=== PATIENT | male | born 1940 | race American Indian/Alaskan Native ===

== ENCOUNTER 2016-10-01 16:22 | Inpatient (IN) | payer MEDICARE, OTHER ==
[2016-10-01] MEDS ORDERED: MORPHINE IV ONE (20:25)
[2016-10-01] MEDS ORDERED: ZOFRAN IV ONE (20:25)
[2016-10-01] MEDS ORDERED: NACL 0.9% 1000 ML 500 ML IV ONE (20:25)
--- NOTE | 2016-10-01 20:39 | Emergency Department Report ---
ED Abdominal Pain HPI - General Chief Complaint: Abdominal Pain Stated Complaint: DISTENDED ABD REGION/PAIN Time Seen by Provider: 10/01/16 20:08 Source: patient, EMS Mode of arrival: Ambulatory Limitations: No Limitations - History of Present Illness Initial Comments: 76-year-old male presents to the emergency department via EMS from local [facility] for evaluation of abdominal pain. Patient reports vague abdominal pain that became worse this afternoon. He reports associated diarrhea. He denies fever, nausea, or vomiting. There has been no blood in his stool. Patient points to the middle of his abdomen when asked where the pain is. Pain does not radiate. There are no other complaints. MD Complaint: abdominal pain -: Gradual, days(s) (4) Location: periumbilical Radiation: none Migration to: no migration Severity: mild Improves With: nothing Worsens With: nothing Associated Symptoms: diarrhea - Related Data Home Medications Medication Instructions Recorded Confirmed Last Taken Apixaban [Eliquis] 2.5 mg PO BID 11/19/14 05/25/16 1 Day Ago Carvedilol [Coreg] 12.5 mg PO BID 04/26/15 05/25/16 1 Day Ago Levothyroxine [Synthroid] 0.075 mg PO QAM@0600 04/08/16 05/25/16 1 Day Ago Allopurinol [Zyloprim] 300 mg PO QDAY PRN 05/25/16 05/25/16 1 Day Ago Ascorbic Acid [Vitamin C] 250 mg PO QDAY 05/25/16 05/25/16 1 Day Ago Aspirin 81 mg PO DAILY 05/25/16 05/25/16 1 Day Ago Bumetanide [Bumex] 1 mg PO BID 05/25/16 05/25/16 1 Day Ago Ezetimibe [Zetia] 10 mg PO QHS 05/25/16 05/25/16 1 Day Ago Hydroxyzine HCl [hydrOXYzine] 10 mg PO Q8H PRN 05/25/16 05/25/16 1 Day Ago ISOSORBIDE MONOnitrate [Imdur ER] 30 mg PO DAILY 05/25/16 05/25/16 1 Day Ago Ipratropium/Albuterol Sulfate 1 ampul IH Q6HR 05/25/16 05/25/16 1 Day Ago [Duoneb 0.5 mg-3 mg/3 ml Soln] Zinc Sulfate 220 mg PO DAILY 05/25/16 05/25/16 1 Day Ago predniSONE [Deltasone] 20 mg PO QDAY 05/25/16 05/25/16 1 Day Ago Previous Rx's Medication Instructions Recorded Last Taken Type Latanoprost 0.005% [Xalatan 0.005%] 1 drops OU HS bottle 07/23/15 1 Day Ago Rx Timolol 0.5% [Timoptic] 1 drops OU BID bottle 07/23/15 1 Day Ago Rx Nystatin Cream [Mycostatin Cream] 1 applic TP BID #1 tube 04/26/16 1 Day Ago Rx cycloSPORINE, MODIFIED [Gengraf] 100 mg PO Q12HR #60 capsule 06/15/16 Unknown Rx Lisinopril [Zestril TAB] 2.5 mg PO QDAY #30 tab 08/26/16 Unknown Rx Allergies Allergy/AdvReac Type Severity Reaction Status Date / Time felodipine Allergy Itching Verified 09/14/15 13:13 gemfibrozil Allergy Nausea Verified 09/14/15 13:13 hydrochlorothiazide Allergy Itching Verified 09/14/15 13:13 niacin Allergy Unknown Verified 05/19/15 13:28 [From Niaspan Extended-Release] nifedipine Allergy Itching Verified 09/14/15 13:13 Llcuugp-Mzy-Igu Reductase Allergy Hives Verified 09/14/15 13:13 Inhibitor tolterodine Allergy Itching Verified 09/14/15 13:22 triamterene Allergy Itching Verified 09/14/15 13:22 atorvastatin AdvReac Unknown Verified 05/19/15 13:28 lovastatin AdvReac Unknown Verified 05/19/15 13:28 simvastatin AdvReac Unknown Verified 05/19/15 13:28 ED Review of Systems ROS: Stated complaint: DISTENDED ABD REGION/PAIN Other details as noted in HPI Comment: All other systems reviewed and negative Gastrointestinal: abdominal pain, diarrhea ED Past Medical Hx - Past Medical History Previous Medical History?: Yes Hx Hypertension: Yes Hx CVA: Yes (L sided deficits) Hx Heart Attack/AMI: No Hx Congestive Heart Failure: Yes Hx Diabetes: Yes Hx Deep Vein Thrombosis: Yes Hx Pulmonary Embolism: No Hx GERD: Yes Hx Liver Disease: No Hx Renal Disease: Yes Hx Sickle Cell Disease: No Hx Arthritis: Yes Hx Asthma: No Hx COPD: No Hx Tuberculosis: No Hx Dementia: Yes Hx HIV: No Additional medical history: high cholesterol,gout, Atrial Fib, pacemaker, lifevest - Surgical History Hx Coronary Stent: No Hx Pacemaker: Yes (with subsequent removal) Hx Internal Defibrillator: No Additional Surgical History: Inguinal hernia repair, repair of left femur fx - Family History Family history: no significant - Social History Smoking Status: Never Smoker Substance Use Type: None - Medications Home Medications: Home Medications Medication Instructions Recorded Confirmed Last Taken Type Apixaban [Eliquis] 2.5 mg PO BID 11/19/14 05/25/16 1 Day Ago History Carvedilol [Coreg] 12.5 mg PO BID 04/26/15 05/25/16 1 Day Ago History Latanoprost 0.005% [Xalatan 0.005%] 1 drops OU HS bottle 07/23/15 05/25/16 1 Day Ago Rx Timolol 0.5% [Timoptic] 1 drops OU BID bottle 07/23/15 05/25/16 1 Day Ago Rx Levothyroxine [Synthroid] 0.075 mg PO QAM@0600 04/08/16 05/25/16 1 Day Ago History Nystatin Cream [Mycostatin Cream] 1 applic TP BID #1 tube 04/26/16 05/25/16 1 Day Ago Rx Allopurinol [Zyloprim] 300 mg PO QDAY PRN 05/25/16 05/25/16 1 Day Ago History Ascorbic Acid [Vitamin C] 250 mg PO QDAY 05/25/16 05/25/16 1 Day Ago History Aspirin 81 mg PO DAILY 05/25/16 05/25/16 1 Day Ago History Bumetanide [Bumex] 1 mg PO BID 05/25/16 05/25/16 1 Day Ago History Ezetimibe [Zetia] 10 mg PO QHS 05/25/16 05/25/16 1 Day Ago History Hydroxyzine HCl [hydrOXYzine] 10 mg PO Q8H PRN 05/25/16 05/25/16 1 Day Ago History ISOSORBIDE MONOnitrate [Imdur ER] 30 mg PO DAILY 05/25/16 05/25/16 1 Day Ago History Ipratropium/Albuterol Sulfate 1 ampul IH Q6HR 05/25/16 05/25/16 1 Day Ago History [Duoneb 0.5 mg-3 mg/3 ml Soln] Zinc Sulfate 220 mg PO DAILY 05/25/16 05/25/16 1 Day Ago History predniSONE [Deltasone] 20 mg PO QDAY 05/25/16 05/25/16 1 Day Ago History cycloSPORINE, MODIFIED [Gengraf] 100 mg PO Q12HR #60 capsule 06/15/16 Unknown Rx Lisinopril [Zestril TAB] 2.5 mg PO QDAY #30 tab 08/26/16 Unknown Rx ED Physical Exam - General Limitations: No Limitations General appearance: alert, in no apparent distress - Head Head exam: Present: atraumatic, normocephalic - Eye Eye exam: Present: normal appearance, PERRL, EOMI - ENT ENT exam: Present: normal exam, normal orophraynx, mucous membranes moist - Neck Neck exam: Present: normal inspection, full ROM. Absent: tenderness - Respiratory Respiratory exam: Present: normal lung sounds bilaterally. Absent: respiratory distress - Cardiovascular Cardiovascular Exam: Present: regular rate, normal rhythm, normal heart sounds - GI/Abdominal GI/Abdominal exam: Present: soft, tenderness (mild tenderness to palpation mid abdomen just to the left of midline), normal bowel sounds. Absent: distended, guarding, rebound - Extremities Exam Extremities exam: Present: normal inspection, full ROM. Absent: tenderness - Back Exam Back exam: Present: normal inspection, full ROM. Absent: tenderness - Neurological Exam Neurological exam: Present: alert, oriented X3. Absent: motor sensory deficit - Skin Skin exam: Present: warm, dry, intact ED Course Vital Signs 10/01/16 21:03 Respiratory 20 Rate ED Medical Decision Making - Lab Data Result diagrams: 10/01/16 20:45 10/01/16 20:45 - Radiology Data Radiology results: report reviewed, image reviewed CT abdomen and pelvis revealed bilateral pleural effusions, pericardial effusion , and ascites. There is also soft tissue edema in the abdomen. This appears similar to previous imaging. - Medical Decision Making Lab and imaging results reviewed and discussed with the patient and family. I have spoken with Dr. Simms, nephrology. Patient is to be admitted by the hospitalist. - Differential Diagnosis abdominal pain, enteritis, bowel obstruction Critical care attestation.: If time is entered above; I have spent that time in minutes in the direct care of this critically ill patient, excluding procedure time. ED Disposition Clinical Impression: Acute renal failure Qualifiers: Acute renal failure type: unspecified Qualified Code(s): N17.9 - Acute kidney failure, unspecified Disposition: OP ADMITTED IP TO THIS HOSP Is pt being admited?: Yes Condition: Stable Time of Disposition: 00:05
[2016-10-01 21:32] LABS: Basophils % (Auto) 0.5 % (0.0-1.8); Eosinophils % (Auto) 0.1 % (0.0-4.3); Hemoglobin 9.2 gm/dl (11.8-15.2); Mean Corpuscular HGB Conc 31 % (32-34); Mean Corpuscular Volume 75 fl (84-94); Platelet Count 149 K/mm3 (140-440); White Blood Count 6.5 K/mm3 (4.5-11.0)
[2016-10-01 21:35] LABS: Albumin 3.1 g/dL (3.9-5); BUN/Creatinine Ratio 33.18; Bilirubin,Direct 0.9 mg/dL (0-0.2); Bilirubin,Indirect 0.6 mg/dL; Bilirubin,Total 1.5 mg/dL (0.1-1.2); Calcium 8.2 mg/dL (8.4-10.2); Chloride 101.5 mmol/L (98-107); Potassium 5.8 mmol/L (3.6-5.0); Total Protein 6.2 g/dL (6.3-8.2)
[2016-10-01 21:43] LABS: Mean Corpuscular Hemoglobin 23 pg (28-32); Red Cell Distribution Width 23.3 % (13.2-15.2)
--- NOTE | 2016-10-01 23:06 | Cat Scan Report ---
FINAL REPORT PROCEDURE: CT ABDOMEN PELVIS WO CON TECHNIQUE: Computerized axial tomography of the abdomen and pelvis was performed without intravenous contrast. This study is performed without intravascular contrast material and its sensitivity for abdominal and pelvic pathology, including neoplasms, inflammation, abscess, free fluid, thrombosis, arterial dissection and infarction, is reduced compared with a contrast enhanced study. HISTORY: abdominal pain COMPARISON: Prior CT scan abdomen and pelvis 06/01/2016 FINDINGS: Lower Lung bernardo: There is a moderate to large right pleural effusion although it appears to be smaller than on the prior exam. Adjacent to the right effusion there appears to be atelectasis. Small left pleural effusion is present. There is cardiomegaly and there also appears to be a moderate to large pericardial effusion. Atherosclerotic changes are seen in the coronary arteries. Upper Abdomen: There is increased density dependently in the gallbladder suggesting small gallstones and or layering sludge. There is a large amount of ascites present. The liver showed no focal abnormalities. Adrenal glands, the pancreas and the spleen are unremarkable. Kidneys, Ureters and Urinary bladder: No abnormalities are seen. Retroperitoneum: Atherosclerotic changes are seen in the abdominal aorta. No aneurysm is visualized. Nonspecific subcentimeter lymph nodes are seen in the retroperitoneum. No pathologically enlarged lymph nodes are identified. Bowel: No focal bowel loop abnormalities are seen. There is moderate diverticulosis in the right side of the colon without evidence of diverticulitis. No free intraperitoneal gas is seen. Other: No acute bony abnormalities are seen. There is diffuse body wall edema. IMPRESSION: Large right pleural effusion is present. This is slightly smaller. There is a large amount of ascites probably unchanged. Diffuse body wall edema again visualized. Small left pleural effusion is present. There is a moderate to large pericardial effusion. Colonic diverticulosis without evidence of diverticulitis. Cholelithiasis and/or sludge visualized in the gallbladder.
[2016-10-02 01:27] LABS: Bacteria,Urine 2+ /HPF (Negative); Bilirubin,Urine NEG (Negative); Blood,Urine MOD (Negative); Ketones,Urine NEG (Negative); Leukocyte Esterase,Urine MOD (Negative); Mucus,Urine FEW /HPF; Nitrite,Urine NEG (Negative)
[2016-10-02] MEDS ORDERED: ATARAX PO PRN (01:44)
[2016-10-02] MEDS ORDERED: ZYLOPRIM PO PRN (01:44)
--- NOTE | 2016-10-02 02:07 | History and Physical Report ---
History of Present Illness Date of examination: 10/02/16 Date of admission: 10/02/2016 Chief complaint: abdominal distension and pain History of present illness: 76-year-old male presents to the emergency department via EMS from local skilled nursing for evaluation of abdominal pain. Patient reports vague abdominal pain that became worse this afternoon. He reports associated diarrhea. He denies fever, nausea, or vomiting. Pain is crampy6-8/10 with no radiation. The patient has diarrhea for the last 2weeks but it gets worse for the last 2 days. No aggravating or alleviating factors. patient was discharged recently after he was treated for infected pacemaker. patient is on life vest. REVIEW OF SYSTEMS: GENERAL: no weight change, no fatigue, no fever HEAD: no head ache EYES: no blurry vision, no acute visual loss EARS: no hearing loss, no discharge, no earache NOSE: no stuffiness, no sneezing, no discharge MOUTH, THROAT AND NECK: no bleeding gums, no sore throat, no swollen neck CARDIAC: no palpitations, + dyspnea on exertion, no orthopnea, no PND, + edema, no chest pain RESPIRATORY: + shortness of breath, no wheeze, no cough, no sputum, no hemoptysis, no asthma GI: no decreased appetite, no nausea, no vomiting, no dysphagia, + diarrhea, no constipation, + abdominal pain URINARY: no change in frequency, no urgency, no polyuria, no hematuria, no incontinence MUSCULOSKELETAL: no muscle weakness, no pain, no joint stiffness NEUROLOGIC: no loss of sensation/numbness, no tingling, no tremors, no weakness/ paralysis HEMATOLOGIC: no anemia, no easy bruising SKIN: no rashes ENDOCRINE: no heat/cold intolerance, no polyuria, no polydipsia, no thyroid problems, no diabetes PSYCHIATRIC: no anxiety, no depression, no suicidal ideations Past History Past Medical History: CAD, diabetes, heart failure Past Surgical History: Other (Pacemaker removal) Social history: , full code. denies: smoking, alcohol abuse, prescription drug abuse, IV drug use Family history: other Medications and Allergies Allergies Allergy/AdvReac Type Severity Reaction Status Date / Time felodipine Allergy Itching Verified 09/14/15 13:13 gemfibrozil Allergy Nausea Verified 09/14/15 13:13 hydrochlorothiazide Allergy Itching Verified 09/14/15 13:13 niacin Allergy Unknown Verified 05/19/15 13:28 [From Niaspan Extended-Release] nifedipine Allergy Itching Verified 09/14/15 13:13 Rxlxugt-Vou-Wdo Reductase Allergy Hives Verified 09/14/15 13:13 Inhibitor tolterodine Allergy Itching Verified 09/14/15 13:22 triamterene Allergy Itching Verified 09/14/15 13:22 atorvastatin AdvReac Unknown Verified 05/19/15 13:28 lovastatin AdvReac Unknown Verified 05/19/15 13:28 simvastatin AdvReac Unknown Verified 05/19/15 13:28 Home Medications Medication Instructions Recorded Confirmed Last Taken Type Apixaban [Eliquis] 2.5 mg PO BID 11/19/14 05/25/16 1 Day Ago History Carvedilol [Coreg] 12.5 mg PO BID 04/26/15 05/25/16 1 Day Ago History Latanoprost 0.005% [Xalatan 0.005%] 1 drops OU HS bottle 07/23/15 05/25/16 1 Day Ago Rx Timolol 0.5% [Timoptic] 1 drops OU BID bottle 07/23/15 05/25/16 1 Day Ago Rx Levothyroxine [Synthroid] 0.075 mg PO QAM@0600 04/08/16 05/25/16 1 Day Ago History Nystatin Cream [Mycostatin Cream] 1 applic TP BID #1 tube 04/26/16 05/25/16 1 Day Ago Rx Hydroxyzine HCl [hydrOXYzine] 10 mg PO Q8H PRN 05/25/16 05/25/16 1 Day Ago History Ipratropium/Albuterol Sulfate 1 ampul IH Q6HR 05/25/16 05/25/16 1 Day Ago History [Duoneb 0.5 mg-3 mg/3 ml Soln] Zinc Sulfate 220 mg PO DAILY 05/25/16 05/25/16 1 Day Ago History predniSONE [Deltasone] 20 mg PO QDAY 05/25/16 05/25/16 1 Day Ago History cycloSPORINE, MODIFIED [Gengraf] 100 mg PO Q12HR #60 capsule 06/15/16 Unknown Rx Active Meds: Active Medications Albuterol/Ipratropium (Duoneb 0.5 Mg-3 Mg/3 Ml Soln) 1 ampul IH Q6HR [facility]ID Allopurinol (Zyloprim) 300 mg PO QDAY PRN PRN Reason: Pain Apixaban (Eliquis) 2.5 mg PO BID DAVID Ascorbic Acid (Vitamin C) 250 mg PO QDAY [facility]ID Aspirin (Baby Aspirin) 81 mg PO DAILY [facility] Bumetanide (Bumex) 1 mg PO BID [facility] Carvedilol (Coreg) 12.5 mg PO BID [facility]ID Ezetimibe (Zetia) 10 mg PO QHS [facility]ID Isosorbide Mononitrate (Imdur) 30 mg PO DAILY [facility] Latanoprost (Xalatan 0.005%) 1 drops OU HS [facility]ID Levothyroxine Sodium (Synthroid) 75 mcg PO QAM@0600 [facility]ID Metronidazole (Flagyl) 500 mg PO Q8HR [facility] Miscellaneous Medication (Hydroxyzine Hcl [Hydroxyzine]) 10 mg PO Q8H PRN PRN Reason: Itching Miscellaneous Medication (Lisinopril [Zestril Tab]) 2.5 mg PO QDAY [facility]ID Miscellaneous Medication (Zinc Sulfate [Zinc Sulfate]) 220 mg PO DAILY [facility]ID Nystatin (Mycostatin) 1 applic TP BID [facility]ID Timolol Maleate (Timoptic) 1 drops OU BID [facility] Exam - Physical Exam Narrative exam: Not in cardiopulmonary distress. The patient appeared well nourished and normally developed. Vital signs as documented. Head exam is unremarkable. No scleral icterus . Neck is without jugular venous distension, thyromegaly, or carotid bruits. Lungs decrease air entry on the lower lung zone. Cardiac exam reveals regular rate and Rhythm. First and second heart sounds normal. No murmurs, rubs or gallops. Abdominal exam reveals distended, non tender. Extremities trace pedal and pretibial edema. INFORMATION SERVICES MANAGER: Alert and oriented 3. No focal weakness. - Constitutional Vitals: Temp Pulse Resp BP Pulse Ox 20 10/01/16 21:03 Results - Labs CBC & Chem 7: 10/01/16 20:45 10/01/16 20:45 Labs: Laboratory Last Values WBC 6.5 K/mm3 (4.5-11.0) 10/01/16 20:45 RBC 4.00 M/mm3 (3.65-5.03) 10/01/16 20:45 Hgb 9.2 gm/dl (11.8-15.2) L 10/01/16 20:45 Hct 30.0 % (35.5-45.6) L 10/01/16 20:45 MCV 75 fl (84-94) L 10/01/16 20:45 MCH 23 pg (28-32) L 10/01/16 20:45 MCHC 31 % (32-34) L 10/01/16 20:45 RDW 23.3 % (13.2-15.2) H 10/01/16 20:45 Plt Count 149 K/mm3 (140-440) 10/01/16 20:45 Lymph % (Auto) 11.4 % (13.4-35.0) L 10/01/16 20:45 [place] % (Auto) 4.7 % (0.0-7.3) 10/01/16 20:45 Eos % (Auto) 0.1 % (0.0-4.3) 10/01/16 20:45 Baso % (Auto) 0.5 % (0.0-1.8) 10/01/16 20:45 Lymph # 0.7 K/mm3 (1.2-5.4) L 10/01/16 20:45 [place] # 0.3 K/mm3 (0.0-0.8) 10/01/16 20:45 Eos # 0.0 K/mm3 (0.0-0.4) 10/01/16 20:45 Baso # 0.0 K/mm3 (0.0-0.1) 10/01/16 20:45 Seg Neutrophils % 83.3 % (40.0-70.0) H 10/01/16 20:45 Seg Neutrophils # 5.4 K/mm3 (1.8-7.7) 10/01/16 20:45 Sodium 140 mmol/L (137-145) 10/01/16 20:45 Potassium 5.8 mmol/L (3.6-5.0) H 10/01/16 20:45 Chloride 101.5 mmol/L (98-107) 10/01/16 20:45 Carbon Dioxide 21 mmol/L (22-30) L 10/01/16 20:45 Anion Gap 23 mmol/L 10/01/16 20:45 BUN 73 mg/dL (9-20) H 10/01/16 20:45 Creatinine 2.2 mg/dL (0.8-1.5) H 10/01/16 20:45 Estimated GFR 36 ml/min 10/01/16 20:45 BUN/Creatinine Ratio 33.18 % 10/01/16 20:45 Glucose 100 mg/dL (75-100) 10/01/16 20:45 Calcium 8.2 mg/dL (8.4-10.2) L 10/01/16 20:45 Total Bilirubin 1.5 mg/dL (0.1-1.2) H 10/01/16 20:45 Direct Bilirubin 0.9 mg/dL (0-0.2) H 10/01/16 20:45 Indirect Bilirubin 0.6 mg/dL 10/01/16 20:45 AST 16 units/L (5-40) 10/01/16 20:45 ALT 11 units/L (7-56) 10/01/16 20:45 Alkaline Phosphatase 100 units/L (35-129) 10/01/16 20:45 Total Protein 6.2 g/dL (6.3-8.2) L 10/01/16 20:45 Albumin 3.1 g/dL (3.9-5) L 10/01/16 20:45 Albumin/Globulin Ratio 1.0 % 10/01/16 20:45 Urine Color Holli (Yellow) 10/01/16 01:03 Urine Turbidity Cloudy (Clear) 10/01/16 01:03 Urine pH 5.0 (5.0-7.0) 10/01/16 01:03 Ur Specific [place] 1.014 (1.003-1.030) 10/01/16 01:03 Urine Protein 100 mg/dl mg/dL (Negative) 10/01/16 01:03 Urine Glucose (UA) Neg mg/dL (Negative) 10/01/16 01:03 Urine Ketones Neg mg/dL (Negative) 10/01/16 01:03 Urine Blood Mod (Negative) 10/01/16 01:03 Urine Nitrite Neg (Negative) 10/01/16 01:03 Urine Bilirubin Neg (Negative) 10/01/16 01:03 Urine Urobilinogen 2.0 mg/dL (<2.0) 10/01/16 01:03 Ur Leukocyte Esterase Mod (Negative) 10/01/16 01:03 Urine WBC (Auto) 8.0 /HPF (0.0-6.0) H 10/01/16 01:03 Urine RBC (Auto) 5.0 /HPF (0.0-6.0) 10/01/16 01:03 U Epithel Cells (Auto) 1.0 /HPF (0-13.0) 10/01/16 01:03 Urine Bacteria (Auto) 2+ /HPF (Negative) 10/01/16 01:03 Hyaline Casts 8 /LPF 10/01/16 01:03 Urine Mucus Few /HPF 10/01/16 01:03 - Imaging and Cardiology CT Scan - head: report reviewed Assessment and Plan Assessment and plan: Abdominal pain Diarrhea Acute renal failure Acute on chronic diastolic and systolic heart failure pleural effusion - C.diff result pending - On empiric flagyl - GI consult placed - Nephrology consult placed - resume home medications - cardiology consult placed DVT prophylaxis - on apixaban Disposition - admit to telemtry floor Advance Directives: Yes VTE prophylaxis?: Chemical Plan of care discussed with patient/family: Yes
[2016-10-02] MEDS: FLAGYL PO SCH ×3 (06:08→21:37)
[2016-10-02] MEDS: SYNTHROID PO SCH (06:08)
[2016-10-02] MEDS: DUONEB 0.5 MG-3 MG/3 ML SOLN IH SCH ×3 (09:34→20:32)
--- NOTE | 2016-10-02 09:57 | Gastroenterology Consultation ---
<MILINDGRACIELAFLORIAN GUTIERRES - Last Filed: 10/02/16 10:08> History of Present Illness - Reason for Consult Consult date: 10/02/16 diarrhea Requesting physician: JCARLOS CORDOVA - History of Present Illness Mr. yeh is a 76 y/o male admitted from his NH for abdominal pain and diarrhea x 3-4 days. Information is limited as the patient states " I am not feeling well and want to talk about this later." He does note that he has been on ABX recently but not sure which ones. He states his abdominal pain is "all over", no associated N/V or signs of bleeding. CT c/w gallbladder sludge as well as ascites. 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 H pylori negative. He has a known EF of 15% and is currently on a life vest. He notes he has underwent colonoscopy in the past but is unable to tell me when. PMH significant for CHF, MRSA bacteremia, A fib, previous PEG placement. Past History Past Medical History: CAD, diabetes, heart failure Past Surgical History: Other (Pacemaker removal, PEG) Social history: , full code. denies: smoking, alcohol abuse, prescription drug abuse, IV drug use Family history: other Medications and Allergies Allergies Allergy/AdvReac Type Severity Reaction Status Date / Time felodipine Allergy Itching Verified 09/14/15 13:13 gemfibrozil Allergy Nausea Verified 09/14/15 13:13 hydrochlorothiazide Allergy Itching Verified 09/14/15 13:13 niacin Allergy Unknown Verified 05/19/15 13:28 [From Niaspan Extended-Release] nifedipine Allergy Itching Verified 09/14/15 13:13 Bxtyosq-Yge-Tyy Reductase Allergy Hives Verified 09/14/15 13:13 Inhibitor tolterodine Allergy Itching Verified 09/14/15 13:22 triamterene Allergy Itching Verified 09/14/15 13:22 atorvastatin AdvReac Unknown Verified 05/19/15 13:28 lovastatin AdvReac Unknown Verified 05/19/15 13:28 simvastatin AdvReac Unknown Verified 05/19/15 13:28 Home Medications Medication Instructions Recorded Confirmed Last Taken Type Apixaban [Eliquis] 2.5 mg PO BID 11/19/14 10/02/16 10/01/16 History Carvedilol [Coreg] 12.5 mg PO BID 04/26/15 10/02/16 10/01/16 History Latanoprost 0.005% [Xalatan 0.005%] 1 drops OU HS bottle 07/23/15 10/02/16 Rx Timolol 0.5% [Timoptic] 1 drops OU BID bottle 07/23/15 10/02/16 10/01/16 Rx Levothyroxine [Synthroid] 0.075 mg PO QAM@0600 04/08/16 10/02/16 10/01/16 History Nystatin Cream [Mycostatin Cream] 1 applic TP BID #1 tube 04/26/16 10/02/16 Rx Hydroxyzine HCl [hydrOXYzine] 10 mg PO Q8H PRN 05/25/16 10/02/16 10/01/16 History Ipratropium/Albuterol Sulfate 1 ampul IH Q6HR 05/25/16 10/02/16 10/01/16 History [Duoneb 0.5 mg-3 mg/3 ml Soln] Zinc Sulfate 220 mg PO DAILY 05/25/16 10/02/16 10/01/16 History predniSONE [Deltasone] 20 mg PO QDAY 05/25/16 10/02/16 10/01/16 History cycloSPORINE, MODIFIED [Gengraf] 100 mg PO Q12HR #60 capsule 06/15/16 10/02/16 10/01/16 Rx Active Meds: Active Medications Albuterol/Ipratropium (Duoneb 0.5 Mg-3 Mg/3 Ml Soln) 1 ampul IH Q6HRT [facility] Last Admin: 10/02/16 09:34 Dose: 1 ampul Allopurinol (Zyloprim) 300 mg PO QDAY PRN PRN Reason: Pain Apixaban (Eliquis) 2.5 mg PO BID [facility] Ascorbic Acid (Vitamin C) 250 mg PO QDAY [facility] Aspirin (Baby Aspirin) 81 mg PO DAILY [facility] Bumetanide (Bumex) 1 mg PO BID [facility] Carvedilol (Coreg) 12.5 mg PO BID [facility] Ezetimibe (Zetia) 10 mg PO QHS [facility] Hydroxyzine HCl (Atarax) 10 mg PO Q8H PRN PRN Reason: Itching Isosorbide Mononitrate (Imdur) 30 mg PO DAILY [facility] Latanoprost (Xalatan 0.005%) 1 drops OU HS [facility] Levothyroxine Sodium (Synthroid) 75 mcg PO QAM@0600 [facility] Last Admin: 10/02/16 06:08 Dose: 75 mcg Lisinopril (Zestril) 2.5 mg PO QDAY [facility] Metronidazole (Flagyl) 500 mg PO Q8HR [facility] Last Admin: 10/02/16 06:08 Dose: 500 mg Nystatin (Mycostatin) 1 applic TP BID [facility] Timolol Maleate (Timoptic) 1 drops OU BID [facility] Zinc Sulfate (Zinc Sulfate) 220 mg PO DAILY [facility] Review of Systems - Review of Systems All systems: negative Constitutional: weakness Gastrointestinal: abdominal pain, diarrhea Exam - Constitutional Vital Signs: Temp Pulse Resp BP Pulse Ox 96.9 F L 88 24 130/94 94 10/02/16 08:28 10/02/16 09:34 10/02/16 09:34 10/02/16 08:28 10/02/16 09:40 General appearance: no acute distress, other (chornically ill appearing) - EENT ENT: hearing intact - Neck Neck: supple - Respiratory Respiratory: bilateral: diminished - Cardiovascular Rhythm: regular Heart Sounds: Present: systolic murmur Extremity abnormal: edema - Gastrointestinal General gastrointestinal: Present: soft, tender (TTP throughout), distended, normal bowel sounds - Integumentary Integumentary: Present: warm, dry - Neurologic Neurological: alert and oriented x3 - Psychiatric Psychiatric: appropriate mood/affect - Labs CBC & Chem 7: 10/01/16 20:45 10/01/16 20:45 Assessment and Plan 1. Diarrhea - C diff pending, patient states his diarrhea is continuous for the last 2-3 days. Unclear to his last colonoscopy - Check fecal WBC/culture - No colitis per CT - Could be 2/2 ABX therapy, currently on Flagyl empirically - CT with Gallbladder sludge, AST/ALT WNL, ALK PHOS WNL, mild elevation to TB 2. Ascites -patient has had paracentesis in the past. This is likely 2/[address] shows pleural effusion and pericardial effusion. Will consider paracentesis if needed. Previously SHANICE negative, Hepatitis negative, no liver disease per CT. 3. Abdominal Pain -Doubt gallbladder, no acute inflammation/colitis per CT -May be due to ascites noted on CT -Consider Paracentesis -WBC WNL, afebrile. <NEELAM OROZCO - Last Filed: 10/02/16 17:53> Medications and Allergies Active Meds: Active Medications Albuterol/Ipratropium (Duoneb 0.5 Mg-3 Mg/3 Ml Soln) 1 ampul IH Q6HRT [facility] Last Admin: 10/02/16 14:39 Dose: 1 ampul Allopurinol (Zyloprim) 300 mg PO QDAY PRN PRN Reason: Pain Apixaban (Eliquis) 2.5 mg PO BID [facility] Last Admin: 10/02/16 10:57 Dose: Not Given Ascorbic Acid (Vitamin C) 250 mg PO QDAY [facility] Last Admin: 10/02/16 10:57 Dose: Not Given Aspirin (Baby Aspirin) 81 mg PO DAILY [facility] Last Admin: 10/02/16 10:56 Dose: Not Given Bumetanide (Bumex) 1 mg PO BID [facility] Last Admin: 10/02/16 10:56 Dose: Not Given Carvedilol (Coreg) 12.5 mg PO BID [facility] Last Admin: 10/02/16 10:56 Dose: Not Given Ezetimibe (Zetia) 10 mg PO QHS [facility] Hydroxyzine HCl (Atarax) 10 mg PO Q8H PRN PRN Reason: Itching Isosorbide Mononitrate (Imdur) 30 mg PO DAILY [facility] Last Admin: 10/02/16 10:57 Dose: Not Given Latanoprost (Xalatan 0.005%) 1 drops OU HS [facility] Levothyroxine Sodium (Synthroid) 75 mcg PO QAM@0600 [facility] Last Admin: 10/02/16 06:08 Dose: 75 mcg Lisinopril (Zestril) 2.5 mg PO QDAY [facility] Last Admin: 10/02/16 10:58 Dose: Not Given Metronidazole (Flagyl) 500 mg PO Q8HR [facility] Last Admin: 10/02/16 15:11 Dose: Not Given Nystatin (Mycostatin) 1 applic TP BID [facility] Timolol Maleate (Timoptic) 1 drops OU BID [facility] Zinc Sulfate (Zinc Sulfate) 220 mg PO DAILY [facility] Last Admin: 10/02/16 10:58 Dose: Not Given Exam - Constitutional Vital Signs: Temp Pulse Resp BP Pulse Ox 96.0 F L 74 20 139/89 99 10/02/16 16:25 10/02/16 16:25 10/02/16 16:25 10/02/16 16:25 10/02/16 16:25 - Labs CBC & Chem 7: 10/01/16 20:45 10/01/16 20:45 Assessment and Plan GI Attending: I have performed a face to face evaluation on Mr. Yeh and agree with the above note of Radha Gibbs NP. He is hospitalized with abdominal discomfort and diarrhea. Had recent MRSA infection to remove infected PPM. Would consider C. diff as leading differential. Already on Flagyl but stool studies sent.
--- NOTE | 2016-10-02 09:59 | Progress Note ---
Subjective Interval history: thank you for the consultation Patient was evaluated today Assessment and plan acute renal failure in a patient who has known history of underlying chronic kidney disease baseline creatinine is around 1 Patient stated that she was seen in the office approximately 2-3 weeks agoWill need to check clinic records History of underlying membranous nephropathy will follow up on the proteinuria Increasing abdominal distention abdominal pain and diarrhea needs to see gastroenterology Hyperkalemia mild at this time needs to be treated medically and follow-up Patient has history of poor compliance Admitted with abdominal distention and abdominal pain needs follow-up We'll continue to follow neck recommendation from renal standpoint to check on renal function tonight Objective - Vital Signs Vital signs: Vital Signs - 12hr 10/02/16 10/02/16 10/02/16 02:00 03:00 03:02 Temperature Pulse Rate 86 86 86 Pulse Rate [ Anterior Bilateral Throughout] Pulse Rate [ Left] Respiratory 15 21 18 Rate Respiratory Rate [Anterior Bilateral Throughout] Blood Pressure 123/72 136/93 136/93 Blood Pressure [Left Arm] O2 Sat by Pulse 99 100 90 Oximetry 10/02/16 10/02/16 10/02/16 03:32 04:00 05:16 Temperature Pulse Rate 87 86 84 Pulse Rate [ Anterior Bilateral Throughout] Pulse Rate [ Left] Respiratory 22 18 Rate Respiratory Rate [Anterior Bilateral Throughout] Blood Pressure 123/96 137/104 Blood Pressure [Left Arm] O2 Sat by Pulse 94 85 Oximetry 10/02/16 10/02/16 10/02/16 06:00 08:28 08:39 Temperature 97.7 F 96.9 F L Pulse Rate 76 Pulse Rate [ Anterior Bilateral Throughout] Pulse Rate [ 86 76 Left] Respiratory 18 20 Rate Respiratory Rate [Anterior Bilateral Throughout] Blood Pressure Blood Pressure 123/90 130/94 [Left Arm] O2 Sat by Pulse 99 Oximetry 10/02/16 10/02/16 09:34 09:40 Temperature Pulse Rate Pulse Rate [ 88 Anterior Bilateral Throughout] Pulse Rate [ Left] Respiratory Rate Respiratory 24 Rate [Anterior Bilateral Throughout] Blood Pressure Blood Pressure [Left Arm] O2 Sat by Pulse 94 Oximetry - Lab 10/01/16 20:45 10/03/16 13:52 Most recent lab results Calcium 8.2 mg/dL (8.4-10.2) L 10/01/16 20:45
[2016-10-02] MEDS ORDERED: ZESTRIL PO SCH (10:00)
[2016-10-02] MEDS: BUMEX PO SCH ×2 (10:56→21:37)
[2016-10-02] MEDS: BABY ASPIRIN PO SCH (10:56)
[2016-10-02] MEDS: COREG PO SCH ×2 (10:56→21:37)
[2016-10-02] MEDS: VITAMIN C PO SCH (10:57)
[2016-10-02] MEDS: IMDUR PO SCH (10:57)
[2016-10-02] MEDS: ELIQUIS PO SCH ×2 (10:57→21:37)
[2016-10-02] MEDS: ZINC SULFATE PO SCH (10:58)
--- NOTE | 2016-10-02 11:31 | Admit Criteria Form ---
Admission Criteria Documentation: RENAL FAILURE, ACUTE Clinical Indications for Admission to Inpatient Care ( Place 'X' for any and all applicable criteria): Admission is indicated for ALL (if I & II) or III of the following [A](2)(3)(4)( 5)(6)(7): [ ]I. Acute renal failure as indicated by ANY ONE of the following: [ ]a) A 3-fold rise in serum creatinine from baseline [ ]b) Serum creatinine greater than 4 mg/dL (354 micromoles/L) with an acute rise greater than 0.5 mg/dL (44.2 micromoles/L) [ ]c) Reduction of more than 75% in estimated glomerular filtration rate from baseline [ ]d) Estimated glomerular filtration rate less than 35 mL/min/1.73m2 (0.59mL/sec/1.73m2)in a child up to 18 years of age [ ]e) Anuria indicated by ALL of the following: [ ]i) Adequate volume status [ ]ii) Cessation of urine output indicated by ANY ONE of the following: [ ]1) Urine output less than 0.3 mL/kg/hr for 24 hours [ ]2) Anuria (urine output less than 0.1 mL/kg/ hr) for 12 hours [ X] II. Renal failure cannot be managed in an outpatient setting or observational care setting as indicating by ANY ONE of the following: [ ]a) Altered mental status that is severe or persistent [ ]b) Volume overload or Respiratory distress (eg, clinically significant pulmonary edema) that is severe or persistent [ ]c) Cardiac arrhythmias of immediate concern [ ]d) Hemodynamic instability [ ]e) Clinically significant electrolyte abnormality that requires inpatient care (eg, hyperkalemia with severe ECG findings)[B] [ ]f) Clinically significant metabolic abnormality (eg, acidosis) that is severe or persistent [X ]g) Acute treatment of renal failure (eg, renal replacement therapy ) not feasible or appropriate in observational care setting [ ]h) Clinical situation too unstable or uncertain (eg, inadequate urine output, ongoing decline in renal function, etiology unclear) [ ]i) Necessary support and caregiver ability to comply with outpatient treatment cannot be arranged in observation care timeframe (eg, within 24 hours) [ X]j) Other significant finding or clinical condition judged not to be within scope of observation care [ X]III.General contraindications and/or Inappropriate clinical situations for Observational Care in patients with Acute Renal Failure, when ANY ONE of the following is required: [X]a) Prediction of prolongation of LOS based on ANY ONE of the following may be considered as a contraindication for observational care 2, 3, 4, 5, 6, 7, 8 , 9, 10, 11 [X ]i) Age > 65 yrs. [ ]ii) Patient arriving by ambulance [ ]iii) Patient with high acuity [ ]iv) Patient requiring vital sign monitoring [ ]v) Patient on IV medication [ ]b) Systolic blood pressures 180mmHg 3,12 [ ]c) Patient with altered mental status including delirium and other alteration of consciousness, (3) [ ]d) Patient whose discharge disposition will be to a nursing home home or rehabilitation home should not be managed in Emergency Department Observation Unit. CMS rule requires 3 days hospital stay before such placement.3,13 [ ]e) Patient with failure to thrive due to broad array of etiologies 3, 16,17 [ ]f) Inability to ambulate 3,14 Extended stay beyond goal length of stay may be needed for(13) [ ]a) Continuing uremic complications [ ]b) Care for comorbidities [ ]c) acute renal failure [ ]d) Need for dialysis The original [employer] content created by [employer] has been revised. The portions of the content which have been revised are identified through the use of italic text or in bold, and [facility] has neither reviewed nor approved the modified material. All other unmodified content is copyright [facility]. Please see references footnoted in the original [employer] edition 2016
--- NOTE | 2016-10-02 16:47 | Consultation ---
Addendum entered and electronically signed by DAIMON SUE MD 10/02/16 20:07 : Conservative cardiac management. Original Note: History of Present Illness Consult date: 10/02/16 Consult reason: other (Hx of infected pacemaker pocket) History of present illness: Patient is a 76yr old male with a history of Nonobstructive coronary disease, Nonischemic cardiomyopathy EF 15%, Peripheral vascular disease, prior CVA, chronic Renal failure, left atrial appendage by BHAVANA 05/2016, paroxysmal Afib and is on eliquis for anticoagulation. 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 Currently wearing a lifevest. He presented to this hospital with complaints abdominal pain associated with diarrhea. No ECG available for review. Telemetry strips shows a sinus rhythm with premature atrial contractions. Patient denies chest pain. Admits to shortness of breath. Remains afebrile. Cardiac consultation requested. Past History Past Medical History: CAD, diabetes, heart failure Past Surgical History: Other (Pacemaker removal, PEG) Social history: , full code. denies: smoking, alcohol abuse, prescription drug abuse, IV drug use Family history: other Medications and Allergies Allergies Allergy/AdvReac Type Severity Reaction Status Date / Time felodipine Allergy Itching Verified 09/14/15 13:13 gemfibrozil Allergy Nausea Verified 09/14/15 13:13 hydrochlorothiazide Allergy Itching Verified 09/14/15 13:13 niacin Allergy Unknown Verified 05/19/15 13:28 [From Niaspan Extended-Release] nifedipine Allergy Itching Verified 09/14/15 13:13 Tiongks-Boh-Acu Reductase Allergy Hives Verified 09/14/15 13:13 Inhibitor tolterodine Allergy Itching Verified 09/14/15 13:22 triamterene Allergy Itching Verified 09/14/15 13:22 atorvastatin AdvReac Unknown Verified 05/19/15 13:28 lovastatin AdvReac Unknown Verified 05/19/15 13:28 simvastatin AdvReac Unknown Verified 05/19/15 13:28 Home Medications Medication Instructions Recorded Confirmed Last Taken Type Apixaban [Eliquis] 2.5 mg PO BID 11/19/14 10/02/16 10/01/16 History Carvedilol [Coreg] 12.5 mg PO BID 04/26/15 10/02/16 10/01/16 History Latanoprost 0.005% [Xalatan 0.005%] 1 drops OU HS bottle 07/23/15 10/02/16 Rx Timolol 0.5% [Timoptic] 1 drops OU BID bottle 07/23/15 10/02/16 10/01/16 Rx Levothyroxine [Synthroid] 0.075 mg PO QAM@0600 04/08/16 10/02/16 10/01/16 History Nystatin Cream [Mycostatin Cream] 1 applic TP BID #1 tube 04/26/16 10/02/16 Rx Hydroxyzine HCl [hydrOXYzine] 10 mg PO Q8H PRN 05/25/16 10/02/16 10/01/16 History Ipratropium/Albuterol Sulfate 1 ampul IH Q6HR 05/25/16 10/02/16 10/01/16 History [Duoneb 0.5 mg-3 mg/3 ml Soln] Zinc Sulfate 220 mg PO DAILY 05/25/16 10/02/16 10/01/16 History predniSONE [Deltasone] 20 mg PO QDAY 05/25/16 10/02/16 10/01/16 History cycloSPORINE, MODIFIED [Gengraf] 100 mg PO Q12HR #60 capsule 06/15/16 10/02/16 10/01/16 Rx Active Meds: Active Medications Albuterol/Ipratropium (Duoneb 0.5 Mg-3 Mg/3 Ml Soln) 1 ampul IH Q6HRT [facility] Last Admin: 10/02/16 14:39 Dose: 1 ampul Allopurinol (Zyloprim) 300 mg PO QDAY PRN PRN Reason: Pain Apixaban (Eliquis) 2.5 mg PO BID [facility] Last Admin: 10/02/16 10:57 Dose: Not Given Ascorbic Acid (Vitamin C) 250 mg PO QDAY [facility] Last Admin: 10/02/16 10:57 Dose: Not Given Aspirin (Baby Aspirin) 81 mg PO DAILY [facility] Last Admin: 10/02/16 10:56 Dose: Not Given Bumetanide (Bumex) 1 mg PO BID [facility] Last Admin: 10/02/16 10:56 Dose: Not Given Carvedilol (Coreg) 12.5 mg PO BID [facility] Last Admin: 10/02/16 10:56 Dose: Not Given Ezetimibe (Zetia) 10 mg PO QHS [facility] Hydroxyzine HCl (Atarax) 10 mg PO Q8H PRN PRN Reason: Itching Isosorbide Mononitrate (Imdur) 30 mg PO DAILY [facility] Last Admin: 10/02/16 10:57 Dose: Not Given Latanoprost (Xalatan 0.005%) 1 drops OU HS [facility] Levothyroxine Sodium (Synthroid) 75 mcg PO QAM@0600 [facility] Last Admin: 10/02/16 06:08 Dose: 75 mcg Lisinopril (Zestril) 2.5 mg PO QDAY [facility] Last Admin: 10/02/16 10:58 Dose: Not Given Metronidazole (Flagyl) 500 mg PO Q8HR [facility] Last Admin: 10/02/16 15:11 Dose: Not Given Nystatin (Mycostatin) 1 applic TP BID [facility] Timolol Maleate (Timoptic) 1 drops OU BID [facility] Zinc Sulfate (Zinc Sulfate) 220 mg PO DAILY [facility] Last Admin: 10/02/16 10:58 Dose: Not Given Physical Examination Vital Signs BP 147/91 10/01/16 19:53 General appearance: no acute distress HEENT: Positive: PERRL Neck: Positive: trachea midline Cardiac: Positive: Reg Rate and Rhythm Lungs: Positive: Decreased Breath Sounds Abdomen: Positive: Distended Results 10/01/16 20:45 10/01/16 20:45 Assessment and Plan Abdominal pain Ascities Non ischemic Cardiomyopathy EF less than 20% wearing lifevest Paroxysmal Atrial Fibrillation on low dose eliquis Hx of MRSA bacteremia s/p extraction of his pacemaker and leads s/t infected pocket Left atrial appendage by BHAVANA 05/2016 Non obstructive CAD by [facility] 2013 Prior CVA Chronic renal failure PVD
--- NOTE | 2016-10-02 19:03 | Progress Note ---
Assessment and Plan Assessment and plan: Patient is a pleasant 76-year-old male presents to the emergency department via EMS from local long-term for evaluation of abdominal pain with associated 3- 4 days of diarrhea. Has been on antiboitics recently He denies fever, nausea, or vomiting. Pain is crampy6-8/10 with no radiation. The patient has diarrhea for the last 2weeks but it gets worse for the last 2 days. No aggravating or alleviating factors. patient was discharged recently after he was treated for infected pacemaker. patient is on life vest. CT c/w gallbladder sludge as well as ascites. 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 H pylori negative. He has a known EF of 15% and is currently on a life vest. He notes he has underwent colonoscopy but not sure when. PMH significant for CHF, MRSA bacteremia, A fib, previous PEG placement. 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 GENERAL: The patient appeared well nourished and normally developed. Vital signs as documented. HEAD: No signs of head trauma. EYES: Pupils are equal. Extraocular motions intact. EARS: Hearing grossly intact. MOUTH: Oropharynx is normal. NECK: No adenopathy, no JVD. CHEST: Chest with clear breath sounds bilaterally. No wheezes, rales, or rhonchi. CARDIAC: Regular rate and rhythm. S1 and S2, without murmurs, gallops, or rubs. VASCULAR: No Edema. Peripheral pulses normal and equal in all extremities. ABDOMEN: Soft, without detectable tenderness. No sign of distention. No rebound or guarding, and no masses palpated. Bowel Sounds normal. MUSCULOSKELETAL: Good range of motion of all major joints. Extremities without clubbing, cyanosis or edema. NEUROLOGIC EXAM: Alert and oriented x 3. No focal sensory or strength deficits. Speech normal. Follows commands. PSYCHIATRIC: Mood normal. SKIN: No rash or lesions. - Constitutional Vitals: Temp Pulse Resp BP Pulse Ox 96.0 F L 74 20 139/89 99 10/02/16 16:25 10/02/16 16:25 10/02/16 16:25 10/02/16 16:25 10/02/16 16:25 General appearance: Present: no acute distress Results - Labs CBC & Chem 7: 10/01/16 20:45 10/01/16 20:45 Labs: Laboratory Last Values WBC 6.5 K/mm3 (4.5-11.0) 10/01/16 20:45 RBC 4.00 M/mm3 (3.65-5.03) 10/01/16 20:45 Hgb 9.2 gm/dl (11.8-15.2) L 10/01/16 20:45 Hct 30.0 % (35.5-45.6) L 10/01/16 20:45 MCV 75 fl (84-94) L 10/01/16 20:45 MCH 23 pg (28-32) L 10/01/16 20:45 MCHC 31 % (32-34) L 10/01/16 20:45 RDW 23.3 % (13.2-15.2) H 10/01/16 20:45 Plt Count 149 K/mm3 (140-440) 10/01/16 20:45 Lymph % (Auto) 11.4 % (13.4-35.0) L 10/01/16 20:45 [place] % (Auto) 4.7 % (0.0-7.3) 10/01/16 20:45 Eos % (Auto) 0.1 % (0.0-4.3) 10/01/16 20:45 Baso % (Auto) 0.5 % (0.0-1.8) 10/01/16 20:45 Lymph # 0.7 K/mm3 (1.2-5.4) L 10/01/16 20:45 [place] # 0.3 K/mm3 (0.0-0.8) 10/01/16 20:45 Eos # 0.0 K/mm3 (0.0-0.4) 10/01/16 20:45 Baso # 0.0 K/mm3 (0.0-0.1) 10/01/16 20:45 Seg Neutrophils % 83.3 % (40.0-70.0) H 10/01/16 20:45 Seg Neutrophils # 5.4 K/mm3 (1.8-7.7) 10/01/16 20:45 Sodium 140 mmol/L (137-145) 10/01/16 20:45 Potassium 5.8 mmol/L (3.6-5.0) H 10/01/16 20:45 Chloride 101.5 mmol/L (98-107) 10/01/16 20:45 Carbon Dioxide 21 mmol/L (22-30) L 10/01/16 20:45 Anion Gap 23 mmol/L 10/01/16 20:45 BUN 73 mg/dL (9-20) H 10/01/16 20:45 Creatinine 2.2 mg/dL (0.8-1.5) H 10/01/16 20:45 Estimated GFR 36 ml/min 10/01/16 20:45 BUN/Creatinine Ratio 33.18 % 10/01/16 20:45 Glucose 100 mg/dL (75-100) 10/01/16 20:45 Calcium 8.2 mg/dL (8.4-10.2) L 10/01/16 20:45 Total Bilirubin 1.5 mg/dL (0.1-1.2) H 10/01/16 20:45 Direct Bilirubin 0.9 mg/dL (0-0.2) H 10/01/16 20:45 Indirect Bilirubin 0.6 mg/dL 10/01/16 20:45 AST 16 units/L (5-40) 10/01/16 20:45 ALT 11 units/L (7-56) 10/01/16 20:45 Alkaline Phosphatase 100 units/L (35-129) 10/01/16 20:45 Total Protein 6.2 g/dL (6.3-8.2) L 10/01/16 20:45 Albumin 3.1 g/dL (3.9-5) L 10/01/16 20:45 Albumin/Globulin Ratio 1.0 % 10/01/16 20:45 Urine Color Holli (Yellow) 10/01/16 01:03 Urine Turbidity Cloudy (Clear) 10/01/16 01:03 Urine pH 5.0 (5.0-7.0) 10/01/16 01:03 Ur Specific [place] 1.014 (1.003-1.030) 10/01/16 01:03 Urine Protein 100 mg/dl mg/dL (Negative) 10/01/16 01:03 Urine Glucose (UA) Neg mg/dL (Negative) 10/01/16 01:03 Urine Ketones Neg mg/dL (Negative) 10/01/16 01:03 Urine Blood Mod (Negative) 10/01/16 01:03 Urine Nitrite Neg (Negative) 10/01/16 01:03 Urine Bilirubin Neg (Negative) 10/01/16 01:03 Urine Urobilinogen 2.0 mg/dL (<2.0) 10/01/16 01:03 Ur Leukocyte Esterase Mod (Negative) 10/01/16 01:03 Urine WBC (Auto) 8.0 /HPF (0.0-6.0) H 10/01/16 01:03 Urine RBC (Auto) 5.0 /HPF (0.0-6.0) 10/01/16 01:03 U Epithel Cells (Auto) 1.0 /HPF (0-13.0) 10/01/16 01:03 Urine Bacteria (Auto) 2+ /HPF (Negative) 10/01/16 01:03 Hyaline Casts 8 /LPF 10/01/16 01:03 Urine Mucus Few /HPF 10/01/16 01:03
[2016-10-02] MEDS: ZETIA PO SCH (21:37)
[2016-10-03] MEDS: DUONEB 0.5 MG-3 MG/3 ML SOLN IH SCH ×4 (02:09→21:10)
[2016-10-03] MEDS: XALATAN 0.005% OU SCH ×2 (05:20→22:00)
[2016-10-03] MEDS: SYNTHROID PO SCH (05:20)
[2016-10-03] MEDS: FLAGYL PO SCH (05:20)
[2016-10-03] MEDS: TIMOPTIC OU SCH ×3 (05:20→22:00)
[2016-10-03] MEDS: MYCOSTATIN TP SCH ×2 (05:21→22:00)
[2016-10-03 07:19] LABS: Calcium 7.8 mg/dL (8.4-10.2); Chloride 101.3 mmol/L (98-107); Potassium 5.9 mmol/L (3.6-5.0)
--- NOTE | 2016-10-03 09:58 | Progress Note ---
Assessment and Plan acute renal failure in a patient who has multiple risk factors for underlying chronic kidney disease there has been deterioration in renal function with worsening hyperkalemia that needs to be treated medically at this point and if it remains refractory patient may require renal replacement therapy. Hyperkalemia [id number] at this time we'll treat medically follow-up on the basic metabolic profile if it remains elevated consider hemodialysis temporarily Anasarca-like picture currently being worked up Overall renal prognosis appears to be guarded, will do a bladder scan today to make sure he does not have any features of obstructive uropathy We'll continue to follow and make recommendation from renal standpoint Subjective Interval history: Patient was seen today for follow-up he is laying in his bed appears not to be in any distress Potassium still noted to be elevated, patient denies any acute complaints Interdisciplinary notes were also reviewed Vitals labs intake output medications were reviewed Objective - Vital Signs Vital signs: Vital Signs - 12hr 10/03/16 10/03/16 10/03/16 02:05 02:16 03:00 Temperature Pulse Rate [ 78 71 Anterior Bilateral Throughout] Pulse Rate [ 77 Left] Respiratory 20 Rate Respiratory 20 18 Rate [Anterior Bilateral Throughout] Blood Pressure 114/87 [Left Arm] O2 Sat by Pulse 100 Oximetry 10/03/16 10/03/16 10/03/16 04:00 08:19 08:28 Temperature 97.8 F 97.4 F L Pulse Rate [ 80 Anterior Bilateral Throughout] Pulse Rate [ 78 66 Left] Respiratory 20 20 Rate Respiratory 18 Rate [Anterior Bilateral Throughout] Blood Pressure 118/82 127/86 [Left Arm] O2 Sat by Pulse 100 100 96 Oximetry 10/03/16 08:38 Temperature Pulse Rate [ 84 Anterior Bilateral Throughout] Pulse Rate [ Left] Respiratory Rate Respiratory 18 Rate [Anterior Bilateral Throughout] Blood Pressure [Left Arm] O2 Sat by Pulse Oximetry - General Appearance General appearance: appears stated age (elderly-appearing gentleman) EENT: mucous membranes moist Neck: no JVD Respiratory: Present: Rales (few bilateral basilar crackles) Cardiology: regular, S1S2 Gastrointestinal: normal (soft nontender) Integumentary: no rash (dry skin one plus edema) - Lab 10/01/16 20:45 10/03/16 13:52 Most recent lab results Calcium 7.8 mg/dL (8.4-10.2) L 10/03/16 05:36
[2016-10-03] MEDS ORDERED: ZYLOPRIM PO PRN ×2 (10:01→12:22)
[2016-10-03] MEDS: VITAMIN C PO SCH (10:41)
[2016-10-03] MEDS: BUMEX PO SCH ×2 (10:41→22:00)
[2016-10-03] MEDS: ZINC SULFATE PO SCH (10:41)
[2016-10-03] MEDS: ELIQUIS PO SCH ×2 (10:42→22:00)
[2016-10-03] MEDS: BABY ASPIRIN PO SCH (10:42)
[2016-10-03] MEDS: COREG PO SCH (10:43)
[2016-10-03] MEDS ORDERED: D50W (25GM) IV PRN (11:00)
[2016-10-03] MEDS ORDERED: KAYEXALATE PO ONE (11:00)
[2016-10-03] MEDS ORDERED: CALCIUM CHLORIDE IV ONE (11:00)
--- NOTE | 2016-10-03 13:26 | Progress Note ---
Addendum entered and electronically signed by DAMION SUE MD 10/03/16 14:02 : Conservative cardiac management. Bradycardia has been reported on the patient's telemetry, we will discontinue carvedilol, and check a thyroid profile. Original Note: Assessment and Plan Abdominal pain Ascities Non ischemic Cardiomyopathy EF less than 20% wearing lifevest Paroxysmal Atrial Fibrillation on low dose eliquis Hx of MRSA bacteremia s/p extraction of his pacemaker and leads s/t infected pocket Left atrial appendage by BHAVANA 05/2016 Non obstructive CAD by [facility] 2013 Prior CVA Chronic renal failure PVD Continue medical therapy for nonischemic cardiomyopathy and paroxysmal atrial fibrillation. Subjective Date of service: 10/03/16 Interval history: Patient resting in bed comfortably. Objective Vital Signs Temp Pulse Pulse Pulse Resp Resp BP 10/03/16 12:24 97.6 F 82 20 10/03/16 10:43 83 127/86 10/03/16 08:38 84 18 10/03/16 08:28 80 18 10/03/16 08:19 97.4 F L 66 20 10/03/16 04:00 97.8 F 78 20 10/03/16 03:00 77 20 10/03/16 02:16 71 18 10/03/16 02:05 78 20 10/02/16 20:45 75 18 10/02/16 20:32 87 18 10/02/16 20:18 98.3 F 93 H 18 10/02/16 20:00 83 10/02/16 16:25 96.0 F L 74 20 10/02/16 14:53 74 18 10/02/16 14:40 74 18 BP Pulse Ox 10/03/16 12:24 137/88 100 10/03/16 10:43 10/03/16 08:38 10/03/16 08:28 96 10/03/16 08:19 127/86 100 10/03/16 04:00 118/82 100 10/03/16 03:00 114/87 100 10/03/16 02:16 10/03/16 02:05 10/02/16 20:45 10/02/16 20:32 98 10/02/16 20:18 132/88 94 10/02/16 20:00 10/02/16 16:25 139/89 99 10/02/16 14:53 10/02/16 14:40 - Physical Examination General: No Apparent Distress HEENT: Positive: PERRL Neck: Positive: trachea midline Cardiac: Positive: Reg Rate and Rhythm Lungs: Positive: Decreased Breath Sounds Abdomen: Positive: Distended - Labs and Meds Comprehensive Metabolic Panel 10/03/16 Range/Units 05:36 Sodium 141 (137-145) mmol/L Potassium 5.9 H (3.6-5.0) mmol/L Chloride 101.3 (98-107) mmol/L Carbon Dioxide 19 L (22-30) mmol/L BUN 93 H (9-20) mg/dL Creatinine 3.0 H (0.8-1.5) mg/dL Glucose 57 L (75-100) mg/dL Calcium 7.8 L (8.4-10.2) mg/dL
[2016-10-03 14:15] LABS: BUN/Creatinine Ratio 32.06; Calcium 7.7 mg/dL (8.4-10.2); Chloride 100.6 mmol/L (98-107)
[2016-10-03] MEDS ORDERED: KAYEXALATE ONE (16:19)
[2016-10-03] MEDS: IMDUR PO SCH (16:42)
--- NOTE | 2016-10-03 16:53 | Gastroenterology Progress Note ---
Assessment and Plan 1) Abd discomfort/diarrhea/fecal incontinence: ?etiology, related to abx? -C. diff neg, so will d/c Flagyl -No diarrhea today, but will anticipate some due to administration of Kayexalate -Given cardiac history, I feel that colonoscopy will be higher risk and of lower diagnostic utility at this time -Would opt to observe and re-assess Subjective Date of service: 10/03/16 Principal diagnosis: Diarrhea Interval history: Pt seen/examined today. No reports of diarrhea or incontinence today. C. diff is negative. Pt still mentions some lower abdominal cramping, but not severe pain. Received Kayexalate for hyperkalemia. C/O neck cramp at this time. Objective - Constitutional Vitals: Temp Pulse Resp BP Pulse Ox 97.3 F L 67 20 122/72 99 10/03/16 15:38 10/03/16 15:38 10/03/16 15:38 10/03/16 15:38 10/03/16 15:38 General appearance: no acute distress - Neck Neck: supple - Respiratory Respiratory: bilateral: CTA - Cardiovascular Rhythm: regular Heart Sounds: Present: S1 & S2 - Extremities Extremities: No edema - Gastrointestinal General gastrointestinal: Present: soft, distended, normal bowel sounds - Neurologic Neurological: alert and oriented x3 - Psychiatric Psychiatric: appropriate mood/affect - Labs CBC & Chem 7: 10/01/16 20:45 10/03/16 13:52 Labs: Laboratory Results - last 24 hr 10/03/16 10/03/16 05:36 13:52 Sodium 141 139 Potassium 5.9 H 6.0 H Chloride 101.3 100.6 Carbon Dioxide 19 L 20 L Anion Gap 27 24 BUN 93 H 93 H Creatinine 3.0 H 2.9 H Estimated GFR 25 26 BUN/Creatinine Ratio 31.00 32.06 Glucose 57 L 60 L Calcium 7.8 L 7.7 L
[2016-10-03] MEDS ORDERED: NACL 0.9% 1000 ML 100 ML IV PRN ×2 (17:12→20:36)
--- NOTE | 2016-10-03 17:15 | Event Note ---
d/w and pt. Worsening renal function Needs to get HD , explained at length to and pt, d/w nurse to place justice K is rising D/w Dr Garcia needs vasacth for HD urgently Will follow
--- NOTE | 2016-10-03 20:15 | XRay Report ---
FINAL REPORT EXAM: XR CHEST 1V AP HISTORY: vas cath TECHNIQUE: AP portable view of the chest PRIORS: CXR 08/26/2016 FINDINGS: Lines, tubes, and devices: Numerous pieces of metallic equipment are present over the chest, somewhat obscuring visualization of the underlying structures. There is a right subclavian PICC line terminating in the distal superior vena cava. A new right jugular double-lumen catheter terminates in the distal superior vena cava. Lungs and pleura: Trachea is normal in position. Mild perihilar vascular prominence is seen. There is no evidence for infiltrate, pleural effusion, or pneumothorax. Cardiomediastinal silhouette: Cardiac silhouette is larger than seen previously. This may be due to underlying pericardial effusion in should be correlated clinically. Cardiac echo may be needed. Other: Bony structures are intact. IMPRESSION: Enlargement of the cardiac silhouette. Given the time interval, possibility of pericardial effusion should be considered. Perihilar vascular congestion identified.
[2016-10-03] MEDS ORDERED: HEPARIN IV PRN (20:36)
[2016-10-03] MEDS: ZETIA PO SCH (22:00)
[2016-10-04] MEDS: DUONEB 0.5 MG-3 MG/3 ML SOLN IH SCH ×4 (01:51→19:51)
--- NOTE | 2016-10-04 05:28 | Progress Note ---
Assessment and Plan - Patient Problems (1) Acute on chronic systolic (congestive) heart failure Current Visit: No Status: Acute Plan to address problem: CArdiology consulted: Continue current care, [facility] protocol: Sodium restriction, daily weight, UOP q shift, diuresis, (2) Acute renal failure Current Visit: Yes Status: Acute Qualifiers: Acute renal failure type: unspecified Qualified Code(s): N17.9 - Acute kidney failure, unspecified Plan to address problem: Nephrology consulted: worsening renal function, dialysis as per nephrology, Pt transferred to ICU. Pending Vas cath placement, and dialysis. The high probability of a clinically significant, sudden or life threatening deterioration of the [cardiac, renal, pulmonary] system(s) required my full and direct attention, intervention and personal management. The aggregate critical care time was [55] minutes. This time is in addition to time spent performing reported procedures but includes the following: [x] Data Review and interpretation [x] Patient assessment and monitoring of vital signs [x] Documentation [x] Medication orders and management (3) Chronic atrial fibrillation Current Visit: No Status: Acute Plan to address problem: Rate controlled, continue current therpay. (4) Debility Current Visit: No Status: Acute Plan to address problem: Bed alarm, fall precautions. (5) Hypertension Current Visit: No Status: Chronic (6) Nephrotic syndrome Current Visit: No Status: Chronic Plan to address problem: Nephrology consulted, dialysis as per renal team, monitor uop q shift, (7) Encephalopathy Current Visit: Yes Status: Acute Plan to address problem: Metabolic in nature. treat renal failure, and heart failure. (8) DVT prophylaxis Current Visit: No Status: Acute History Interval history: Pt lying in bed, Pt stupurous, with deterioration since admission. Pending transfer to ICU. Hospitalist Physical - Constitutional Vitals: Temp Pulse Resp BP Pulse Ox 97.8 F 77 14 132/78 98 10/04/16 04:00 10/04/16 02:07 10/04/16 02:07 10/04/16 02:00 10/04/16 02:00 General appearance: Present: no acute distress - Neck Neck: Present: supple - Respiratory Respiratory: bilateral: diminished - Cardiovascular Rhythm: irregularly irregular - Extremities Extremity abnormal: edema - Abdominal General gastrointestinal: soft, non-distended, no hepatomegaly, no splenomegaly - Integumentary Integumentary: Present: clear, dry, decreased turgor - Psychiatric Psychiatric: no intact judgment & insight, no memory intact - Neurologic Neurologic: moves all extremities, no gait normal Results - Labs CBC & Chem 7: 10/01/16 20:45 10/03/16 13:52 Labs: Laboratory Last Values WBC 6.5 K/mm3 (4.5-11.0) 10/01/16 20:45 RBC 4.00 M/mm3 (3.65-5.03) 10/01/16 20:45 Hgb 9.2 gm/dl (11.8-15.2) L 10/01/16 20:45 Hct 30.0 % (35.5-45.6) L 10/01/16 20:45 MCV 75 fl (84-94) L 10/01/16 20:45 MCH 23 pg (28-32) L 10/01/16 20:45 MCHC 31 % (32-34) L 10/01/16 20:45 RDW 23.3 % (13.2-15.2) H 10/01/16 20:45 Plt Count 149 K/mm3 (140-440) 10/01/16 20:45 Lymph % (Auto) 11.4 % (13.4-35.0) L 10/01/16 20:45 [place] % (Auto) 4.7 % (0.0-7.3) 10/01/16 20:45 Eos % (Auto) 0.1 % (0.0-4.3) 10/01/16 20:45 Baso % (Auto) 0.5 % (0.0-1.8) 10/01/16 20:45 Lymph # 0.7 K/mm3 (1.2-5.4) L 10/01/16 20:45 [place] # 0.3 K/mm3 (0.0-0.8) 10/01/16 20:45 Eos # 0.0 K/mm3 (0.0-0.4) 10/01/16 20:45 Baso # 0.0 K/mm3 (0.0-0.1) 10/01/16 20:45 Seg Neutrophils % 83.3 % (40.0-70.0) H 10/01/16 20:45 Seg Neutrophils # 5.4 K/mm3 (1.8-7.7) 10/01/16 20:45 Sodium 139 mmol/L (137-145) 10/03/16 13:52 Potassium 6.0 mmol/L (3.6-5.0) H 10/03/16 13:52 Chloride 100.6 mmol/L (98-107) 10/03/16 13:52 Carbon Dioxide 20 mmol/L (22-30) L 10/03/16 13:52 Anion Gap 24 mmol/L 10/03/16 13:52 BUN 93 mg/dL (9-20) H 10/03/16 13:52 Creatinine 2.9 mg/dL (0.8-1.5) H 10/03/16 13:52 Estimated GFR 26 ml/min 10/03/16 13:52 BUN/Creatinine Ratio 32.06 % 10/03/16 13:52 Glucose 60 mg/dL (75-100) L 10/03/16 13:52 POC Glucose 129 (70-105) H 10/03/16 21:45 Calcium 7.7 mg/dL (8.4-10.2) L 10/03/16 13:52 Total Bilirubin 1.5 mg/dL (0.1-1.2) H 10/01/16 20:45 Direct Bilirubin 0.9 mg/dL (0-0.2) H 10/01/16 20:45 Indirect Bilirubin 0.6 mg/dL 10/01/16 20:45 AST 16 units/L (5-40) 10/01/16 20:45 ALT 11 units/L (7-56) 10/01/16 20:45 Alkaline Phosphatase 100 units/L (35-129) 10/01/16 20:45 Total Protein 6.2 g/dL (6.3-8.2) L 10/01/16 20:45 Albumin 3.1 g/dL (3.9-5) L 10/01/16 20:45 Albumin/Globulin Ratio 1.0 % 10/01/16 20:45 TSH 2.570 mlU/mL (0.270-4.200) 10/03/16 17:00 Urine Color [place] (Yellow) 10/01/16 01:03 Urine Turbidity Cloudy (Clear) 10/01/16 01:03 Urine pH 5.0 (5.0-7.0) 10/01/16 01:03 Ur Specific [place] 1.014 (1.003-1.030) 10/01/16 01:03 Urine Protein 100 mg/dl mg/dL (Negative) 10/01/16 01:03 Urine Glucose (UA) Neg mg/dL (Negative) 10/01/16 01:03 Urine Ketones Neg mg/dL (Negative) 10/01/16 01:03 Urine Blood Mod (Negative) 10/01/16 01:03 Urine Nitrite Neg (Negative) 10/01/16 01:03 Urine Bilirubin Neg (Negative) 10/01/16 01:03 Urine Urobilinogen 2.0 mg/dL (<2.0) 10/01/16 01:03 Ur Leukocyte Esterase Mod (Negative) 10/01/16 01:03 Urine WBC (Auto) 8.0 /HPF (0.0-6.0) H 10/01/16 01:03 Urine RBC (Auto) 5.0 /HPF (0.0-6.0) 10/01/16 01:03 U Epithel Cells (Auto) 1.0 /HPF (0-13.0) 10/01/16 01:03 Urine Bacteria (Auto) 2+ /HPF (Negative) 10/01/16 01:03 Hyaline Casts 8 /LPF 10/01/16 01:03 Urine Mucus Few /HPF 10/01/16 01:03 Hepatitis A IgM Ab -1 (NonReactive) 10/03/16 20:29 Hep Bs Antigen Non-reactive (Negative) 10/03/16 20:29 Hep B Core IgM Ab Non-reactive (NonReactive) 10/03/16 20:29 Hepatitis C Antibody Non-reactive (NonReactive) 10/03/16 20:29
--- NOTE | 2016-10-04 07:28 | Gastroenterology Progress Note ---
Assessment and Plan 1) Abd discomfort/diarrhea/fecal incontinence: ?etiology, related to abx? -C. diff neg -Given cardiac history, I feel that colonoscopy will be higher risk and of lower diagnostic utility at this time -Would opt to observe for now I will stop following daily, but please do not hesitate to re-call with any questions. Thank you! Subjective Date of service: 10/04/16 Principal diagnosis: Diarrhea Interval history: Pt seen/examined this AM. Moved to ICU overnight for emergent HD due to worsening hyperkalemia. Abd discomfort the same, no diarrhea overnight. No fevers, chills. Objective - Constitutional Vitals: Temp Pulse Resp BP Pulse Ox 97.8 F 74 14 116/68 100 10/04/16 04:00 10/04/16 06:00 10/04/16 06:00 10/04/16 06:00 10/04/16 05:40 General appearance: no acute distress - Neck Neck: supple, other (right IJ) - Respiratory Respiratory: bilateral: CTA - Cardiovascular Rhythm: regular Heart Sounds: Present: S1 & S2 - Extremities Extremities: No edema - Gastrointestinal General gastrointestinal: Present: soft, non-tender, non-distended, normal bowel sounds - Neurologic Neurological: alert and oriented x3 - Labs CBC & Chem 7: 10/01/16 20:45 10/03/16 13:52 Labs: Laboratory Results - last 24 hr 10/03/16 10/03/16 10/03/16 13:52 17:00 20:29 Sodium 139 Potassium 6.0 H Chloride 100.6 Carbon Dioxide 20 L Anion Gap 24 BUN 93 H Creatinine 2.9 H Estimated GFR 26 BUN/Creatinine Ratio 32.06 Glucose 60 L POC Glucose Calcium 7.7 L TSH 2.570 Hepatitis A IgM Ab -1 Hep Bs Antigen Non-reactive Hep B Core IgM Ab Non-reactive Hepatitis C Antibody Non-reactive 10/03/16 21:45 Sodium Potassium Chloride Carbon Dioxide Anion Gap BUN Creatinine Estimated GFR BUN/Creatinine Ratio Glucose POC Glucose 129 H Calcium TSH Hepatitis A IgM Ab Hep Bs Antigen Hep B Core IgM Ab Hepatitis C Antibody
--- NOTE | 2016-10-04 08:06 | Operative Report ---
Operative Report Operative Report: Date of procedure: 04/02/2017 Pre-operative diagnosis: Acute renal failure Post-operative diagnosis: Name Procedure name(s): Right internal jugular temporary dialysis catheter placement Surgeon: Rui Garcia MD, RPVI Db2 Dba: None Anesthesia:: With IV sedation Findings 1. Patent right internal jugular vein. 2. Tip of the catheters in the right atrium. 3. Catheter aspirates and flushed easily. EBL: Minimal Disposition: ICU Procedure Patient was brought to the ICU. Right neck was prepped and draped in usual sterile fashion. It was anesthetized with 1% lidocaine. Under ultrasound guidance the micropuncture needle was inserted into the right internal jugular vein. The micropuncture wire was advanced into the superior vena cava. The introducer was placed the wire was exchanged to a J-tip wire. The wire was directed down into the IVC. The tract was dilated using a dilator. The dialysis catheter was placed over the wire. The wire was removed. The catheter aspirated and flushed easily. Each port was hep-locked with heparin. The catheter was anchored to the skin using 2-0 silk stitch. Dressings were applied. Patient tolerated procedure well.
[2016-10-04 09:06] LABS: BUN/Creatinine Ratio 24.73; Calcium 7.2 mg/dL (8.4-10.2); Chloride 99.3 mmol/L (98-107); Potassium 4.3 mmol/L (3.6-5.0)
[2016-10-04] MEDS: TIMOPTIC OU SCH ×2 (10:33→21:29)
--- NOTE | 2016-10-04 11:48 | Consultation ---
History of Present Illness - Reason for Consult Consult date: 10/04/16 Vascath placement Requesting physician: CHRISTIANO AGUIRRE - History of Present Illness 76 y/o male, orginially admitted to the floor, now with worsening renal function and elevated potassium admitted to the ICU for vascath placement for Urgent HD Past History Past Medical History: CAD, diabetes, heart failure Past Surgical History: Other (Pacemaker removal, PEG) Social history: , full code. denies: smoking, alcohol abuse, prescription drug abuse, IV drug use Family history: other Medications and Allergies Allergies Allergy/AdvReac Type Severity Reaction Status Date / Time felodipine Allergy Itching Verified 09/14/15 13:13 gemfibrozil Allergy Nausea Verified 09/14/15 13:13 hydrochlorothiazide Allergy Itching Verified 09/14/15 13:13 niacin Allergy Unknown Verified 05/19/15 13:28 [From Niaspan Extended-Release] nifedipine Allergy Itching Verified 09/14/15 13:13 Zfrzryc-Oki-Jyf Reductase Allergy Hives Verified 09/14/15 13:13 Inhibitor tolterodine Allergy Itching Verified 09/14/15 13:22 triamterene Allergy Itching Verified 09/14/15 13:22 atorvastatin AdvReac Unknown Verified 05/19/15 13:28 lovastatin AdvReac Unknown Verified 05/19/15 13:28 simvastatin AdvReac Unknown Verified 05/19/15 13:28 Home Medications Medication Instructions Recorded Confirmed Last Taken Type Apixaban [Eliquis] 2.5 mg PO BID 11/19/14 10/02/16 10/01/16 History Carvedilol [Coreg] 12.5 mg PO BID 04/26/15 10/02/16 10/01/16 History Latanoprost 0.005% [Xalatan 0.005%] 1 drops OU HS bottle 07/23/15 10/02/16 Rx Timolol 0.5% [Timoptic] 1 drops OU BID bottle 07/23/15 10/02/16 10/01/16 Rx Levothyroxine [Synthroid] 0.075 mg PO QAM@0600 04/08/16 10/02/16 10/01/16 History Nystatin Cream [Mycostatin Cream] 1 applic TP BID #1 tube 04/26/16 10/02/16 Rx Hydroxyzine HCl [hydrOXYzine] 10 mg PO Q8H PRN 05/25/16 10/02/16 10/01/16 History Ipratropium/Albuterol Sulfate 1 ampul IH Q6HR 05/25/16 10/02/16 10/01/16 History [Duoneb 0.5 mg-3 mg/3 ml Soln] Zinc Sulfate 220 mg PO DAILY 05/25/16 10/02/16 10/01/16 History predniSONE [Deltasone] 20 mg PO QDAY 05/25/16 10/02/16 10/01/16 History cycloSPORINE, MODIFIED [Gengraf] 100 mg PO Q12HR #60 capsule 06/15/16 10/02/16 10/01/16 Rx Active Meds: Active Medications Albuterol/Ipratropium (Duoneb 0.5 Mg-3 Mg/3 Ml Soln) 1 ampul IH Q6HRT [facility] Last Admin: 10/04/16 08:05 Dose: 1 ampul Allopurinol (Zyloprim) 100 mg PO QDAY PRN PRN Reason: Gout Pain Apixaban (Eliquis) 2.5 mg PO BID [facility] Last Admin: 10/03/16 10:42 Dose: 2.5 mg Ascorbic Acid (Vitamin C) 250 mg PO QDAY [facility] Last Admin: 10/03/16 10:41 Dose: 250 mg Aspirin (Baby Aspirin) 81 mg PO DAILY [facility] Last Admin: 10/03/16 10:42 Dose: 81 mg Bumetanide (Bumex) 1 mg PO BID [facility] Last Admin: 10/03/16 10:41 Dose: 1 mg Dextrose (D50w (25gm)) 25 ml IV PRN PRN PRN Reason: Hypoglycemia Ezetimibe (Zetia) 10 mg PO QHS [facility] Last Admin: 10/02/16 21:37 Dose: 10 mg Heparin Sodium (Porcine) (Heparin) 5,000 unit IV LANCE PRN PRN Reason: hemodialysis Last Admin: 10/03/16 22:49 Dose: 5,000 unit Hydroxyzine HCl (Atarax) 10 mg PO Q8H PRN PRN Reason: Itching Sodium Chloride (Nacl 0.9% 1000 Ml) 100 mls @ 999 mls/hr IV LANCE PRN PRN Reason: Hypotension Sodium Chloride (Nacl 0.9% 1000 Ml) 100 mls @ 999 mls/hr IV LANCE PRN PRN Reason: Hypotension Isosorbide Mononitrate (Imdur) 30 mg PO DAILY [facility] Last Admin: 10/03/16 16:42 Dose: Not Given Latanoprost (Xalatan 0.005%) 1 drops OU HS [facility] Last Admin: 10/03/16 05:20 Dose: Not Given Levothyroxine Sodium (Synthroid) 75 mcg PO QAM@0600 [facility] Last Admin: 10/03/16 05:20 Dose: 75 mcg Nystatin (Mycostatin) 1 applic TP BID [facility] Last Admin: 10/03/16 05:21 Dose: Not Given Timolol Maleate (Timoptic) 1 drops OU BID [facility] Last Admin: 10/03/16 18:36 Dose: Not Given Zinc Sulfate (Zinc Sulfate) 220 mg PO DAILY [facility] Last Admin: 10/03/16 10:41 Dose: 220 mg Review of Systems All systems: negative Exam - Constitutional Vitals: Temp Pulse Resp BP Pulse Ox 97.7 F 69 11 L 124/72 100 10/04/16 08:00 10/04/16 10:00 10/04/16 10:00 10/04/16 10:00 10/04/16 10:00 Results - Labs CBC & Chem 7: 10/01/16 20:45 10/04/16 08:40 Labs: Abnormal lab results 10/03/16 10/03/16 10/04/16 Range/Units 13:52 21:45 08:40 Potassium 6.0 H (3.6-5.0) mmol/L Carbon Dioxide 20 L (22-30) mmol/L BUN 93 H 47 H (9-20) mg/dL Creatinine 2.9 H 1.9 H (0.8-1.5) mg/dL Glucose 60 L (75-100) mg/dL POC Glucose 129 H (70-105) Calcium 7.7 L 7.2 L (8.4-10.2) mg/dL - Imaging and Cardiology Chest x-ray: image reviewed (cardiomegaly with evidence of extenal pads, likely from a life vest.) Assessment and Plan 76 y/o male with NICM, non sustained v-tach with life vest now with worsening renal failure requiring dialysis. 1. Catheter placed and had HD last night. 2. Stable for transfer to the floor now
--- NOTE | 2016-10-04 12:34 | Progress Note ---
Assessment and Plan Abdominal pain Ascites Non ischemic Cardiomyopathy EF less than 20% wearing lifevest Persistent Atrial Fibrillation - rate controlled on low dose eliquis Pauses on tele likely related to hyperkalemia Normal TSH Hx of MRSA bacteremia s/p extraction of his pacemaker and leads s/t infected pocket Left atrial appendage clot by BHAVANA 05/2016 Non obstructive CAD by [facility] 2013 Prior CVA Acute on Chronic renal failure requiring transfer to ICU urgent vascath placement and HD PVD Recommendations: Continue medical therapy for nonischemic cardiomyopathy and persistent atrial fibrillation. Poor prognosis overall Subjective Date of service: 10/04/16 Principal diagnosis: Diarrhea Interval history: patient remains altered this morning. No further pauses on tele. Objective Vital Signs Temp Pulse Pulse Pulse Resp Resp BP 10/04/16 12:00 75 15 123/67 10/04/16 11:00 69 11 L 136/73 10/04/16 10:00 72 11 L 124/72 10/04/16 09:00 74 11 L 125/62 10/04/16 08:20 78 15 101/68 10/04/16 08:11 77 20 10/04/16 08:07 10/04/16 08:00 97.7 F 76 75 16 16 102/69 10/04/16 07:00 74 18 121/79 10/04/16 06:04 68 14 126/72 10/04/16 06:00 74 14 116/68 10/04/16 05:40 73 12 130/71 10/04/16 05:00 70 10 L 139/74 10/04/16 04:00 97.8 F 80 20 119/73 10/04/16 03:00 79 21 107/80 10/04/16 02:12 74 18 120/82 10/04/16 02:07 77 14 10/04/16 02:00 79 13 132/78 10/04/16 01:52 75 14 10/04/16 01:00 76 12 108/65 10/04/16 00:00 97.4 F L 80 16 133/87 10/03/16 23:00 75 16 115/91 10/03/16 22:44 96.8 F L 83 14 140/56 10/03/16 22:30 81 10/03/16 22:15 76 132/60 10/03/16 22:03 76 129/85 10/03/16 22:00 70 10 L 126/87 10/03/16 21:45 79 126/87 10/03/16 21:30 72 134/71 10/03/16 21:15 73 136/71 10/03/16 21:10 10/03/16 21:02 70 110/54 10/03/16 21:00 76 11 L 119/55 10/03/16 20:45 70 119/55 10/03/16 20:30 69 129/66 10/03/16 20:15 71 130/52 10/03/16 20:00 70 11 L 125/69 10/03/16 19:45 67 128/42 10/03/16 19:30 68 121/74 10/03/16 19:22 78 10/03/16 19:15 96.8 F L 85 15 121/74 10/03/16 18:15 92 H 103/49 10/03/16 15:38 97.3 F L 67 20 10/03/16 14:07 74 18 10/03/16 13:59 70 18 BP Pulse Ox Pulse Ox 10/04/16 12:00 100 10/04/16 11:00 10/04/16 10:00 100 10/04/16 09:00 99 10/04/16 08:20 100 10/04/16 08:11 10/04/16 08:07 100 10/04/16 08:00 99 10/04/16 07:00 100 10/04/16 06:04 10/04/16 06:00 10/04/16 05:40 100 10/04/16 05:00 99 10/04/16 04:00 10/04/16 03:00 95 10/04/16 02:12 72 L 10/04/16 02:07 10/04/16 02:00 98 10/04/16 01:52 10/04/16 01:00 100 10/04/16 00:00 96 10/03/16 23:00 100 10/03/16 22:44 97 10/03/16 22:30 10/03/16 22:15 10/03/16 22:03 10/03/16 22:00 99 10/03/16 21:45 10/03/16 21:30 10/03/16 21:15 01/17/17 21:10 98 10/03/16 21:02 10/03/16 21:00 100 10/03/16 20:45 10/03/16 20:30 10/03/16 20:15 10/03/16 20:00 100 10/03/16 19:45 10/03/16 19:30 10/03/16 19:22 10/03/16 19:15 100 10/03/16 18:15 10/03/16 15:38 122/72 99 10/03/16 14:07 10/03/16 13:59 - Physical Examination General: No Apparent Distress HEENT: Positive: PERRL Neck: Positive: trachea midline Cardiac: Positive: irregularly irregular Lungs: Positive: Decreased Breath Sounds Abdomen: Positive: Distended - Labs and Meds Comprehensive Metabolic Panel 10/03/16 10/04/16 Range/Units 13:52 08:40 Sodium 139 139 (137-145) mmol/L Potassium 6.0 H 4.3 D (3.6-5.0) mmol/L Chloride 100.6 99.3 (98-107) mmol/L Carbon Dioxide 20 L 26 (22-30) mmol/L BUN 93 H 47 H (9-20) mg/dL Creatinine 2.9 H 1.9 H (0.8-1.5) mg/dL Glucose 60 L 96 (75-100) mg/dL Calcium 7.7 L 7.2 L (8.4-10.2) mg/dL
[2016-10-04] MEDS: BUMEX PO SCH ×2 (13:46→21:31)
[2016-10-04] MEDS: BABY ASPIRIN PO SCH (13:47)
[2016-10-04] MEDS: IMDUR PO SCH (13:48)
[2016-10-04] MEDS: VITAMIN C PO SCH (13:49)
[2016-10-04] MEDS ORDERED: AZACTAM IV SCH (14:00)
[2016-10-04] MEDS ORDERED: NACL 0.9% IV SCH (14:00)
--- NOTE | 2016-10-04 14:38 | Progress Note ---
Assessment and Plan PAULINE;patient required renal replacement therapy due to rising potassium and electrolyte imbalance Currently he does not have any acute emergent indication for renal replacement therapy patient still continues to have significant abdominal distention for which she will need to be followed by primary team He may need a follow-up imaging on this At this point I would continue to keep the Dugan catheter Recommend doing a chest x-ray for follow-up Patient does have severe cardiomyopathy followed by cardiology He does have history of underlying membranous nephropathy along with diabetic nephropathy He was recently seen in the clinic and was doing much better with creatinine of only 1 According to patient's he does have poor eating habits His overall prognosis does not appear to be guarded at this time e'll continue to follow and make recommendation from renal standpoint plan of care was discussed with ICU nurse Subjective Principal diagnosis: Diarrhea Interval history: Seen today for follow-up upon vascular surgery's request patient was transferred to ICU for central venous catheter which was placed yesterday patient did receive hemodialysis.patient still continues to have abdominal distention appears to be somewhat encephalopathic Potassium is currently normalized Dugan catheter was placed yesterday due to renal failure Vitals labs intake output medications were reviewed Case was also discussed with ICU nurse Time of evaluation around 9:45 in the morning Objective - Vital Signs Vital signs: Vital Signs - 12hr 10/04/16 10/04/16 10/04/16 03:00 04:00 05:00 Temperature 97.8 F Pulse Rate 79 80 70 Pulse Rate [ Anterior Bilateral Throughout] Respiratory 21 20 10 L Rate Respiratory Rate [Anterior Bilateral Throughout] Blood Pressure 107/80 119/73 139/74 O2 Sat by Pulse 95 99 Oximetry 10/04/16 10/04/16 10/04/16 05:40 06:00 06:04 Temperature Pulse Rate 73 74 68 Pulse Rate [ Anterior Bilateral Throughout] Respiratory 12 14 14 Rate Respiratory Rate [Anterior Bilateral Throughout] Blood Pressure 130/71 116/68 126/72 O2 Sat by Pulse 100 Oximetry 10/04/16 10/04/16 10/04/16 07:00 08:00 08:07 Temperature 97.7 F Pulse Rate 74 76 Pulse Rate [ 75 Anterior Bilateral Throughout] Respiratory 18 16 Rate Respiratory 16 Rate [Anterior Bilateral Throughout] Blood Pressure 121/79 102/69 O2 Sat by Pulse 100 99 100 Oximetry 10/04/16 10/04/16 10/04/16 08:11 08:20 09:00 Temperature Pulse Rate 78 74 Pulse Rate [ 77 Anterior Bilateral Throughout] Respiratory 15 11 L Rate Respiratory 20 Rate [Anterior Bilateral Throughout] Blood Pressure 101/68 125/62 O2 Sat by Pulse 100 99 Oximetry 10/04/16 10/04/16 10/04/16 10:00 11:00 12:00 Temperature 98 F Pulse Rate 72 69 75 Pulse Rate [ Anterior Bilateral Throughout] Respiratory 11 L 11 L 15 Rate Respiratory Rate [Anterior Bilateral Throughout] Blood Pressure 124/72 136/73 123/67 O2 Sat by Pulse 100 100 Oximetry 10/04/16 10/04/16 10/04/16 12:02 13:00 13:46 Temperature Pulse Rate 68 74 78 Pulse Rate [ Anterior Bilateral Throughout] Respiratory 12 12 17 Rate Respiratory Rate [Anterior Bilateral Throughout] Blood Pressure 133/74 123/82 121/68 O2 Sat by Pulse 95 97 Oximetry 10/04/16 13:48 Temperature Pulse Rate 76 Pulse Rate [ Anterior Bilateral Throughout] Respiratory Rate Respiratory Rate [Anterior Bilateral Throughout] Blood Pressure 131/77 O2 Sat by Pulse Oximetry - General Appearance General appearance: appears stated age (chronically ill-appearing male) EENT: mucous membranes moist Neck: no JVD Respiratory: Present: Rales (bilateral basilar crackles posteriorly) Cardiology: regular (S1 and S2 heard) Gastrointestinal: other (abdomen appears to be distended and dull flanks no suprapubic tenderness) Integumentary: other (no edema today) Neurologic: other (arousable but encephalopathic) - Lab 10/01/16 20:45 10/04/16 08:40 Most recent lab results Calcium 7.2 mg/dL (8.4-10.2) L 10/04/16 08:40
[2016-10-04] MEDS: ELIQUIS PO SCH ×2 (17:47→21:31)
[2016-10-04] MEDS: MYCOSTATIN TP SCH ×2 (17:48→21:30)
[2016-10-04] MEDS: ZINC SULFATE PO SCH (17:48)
[2016-10-04] MEDS: ZETIA PO SCH (21:31)
[2016-10-04] MEDS: XALATAN 0.005% OU SCH (22:00)
[2016-10-05] MEDS: DUONEB 0.5 MG-3 MG/3 ML SOLN IH SCH ×3 (01:37→20:22)
[2016-10-05] MEDS: SYNTHROID PO SCH (05:23)
--- NOTE | 2016-10-05 09:53 | Progress Note ---
Assessment and Plan PAULINE;needs close monitoring of his renal function,patient is currently nonoliguric basic metabolic profile needs to be done Hyperkalemia needs to be monitored require renal replacement therapy No acute emergent indication for renal replacement therapy at this point Cardiomyopathy congestive heart failure being Continue to keep Dugan catheter monitor intake and output Please consider further workup for abdominal distention Monitor daily labs Avoid nephrotoxic medication History of underlying diabetic as well as membranous nephropathy Overall prognosis guarded to poor Subjective Principal diagnosis: Diarrhea Interval history: Patient was seen today for follow-up on multiple renal related issues Events of 24 hours vitals labs intake output medications were reviewed He still continues to be encephalopathic at relatively better Denies any complaints of chest pain or pressure Objective - Vital Signs Vital signs: Vital Signs - 12hr 10/04/16 10/04/16 10/05/16 22:00 23:01 00:00 Temperature 98.2 F Pulse Rate 99 H 74 77 Respiratory 16 13 15 Rate Blood Pressure 124/68 117/63 107/77 O2 Sat by Pulse 100 100 98 Oximetry 10/05/16 10/05/16 10/05/16 01:01 01:29 01:39 Temperature Pulse Rate 76 94 H 85 Respiratory 16 11 L 15 Rate Blood Pressure 131/68 127/73 122/74 O2 Sat by Pulse 99 100 100 Oximetry 10/05/16 10/05/16 10/05/16 02:00 03:01 03:55 Temperature 98.3 F Pulse Rate 95 H 75 Respiratory 14 12 Rate Blood Pressure 122/69 122/76 O2 Sat by Pulse 100 97 Oximetry 10/05/16 10/05/16 10/05/16 04:01 05:00 06:01 Temperature Pulse Rate 78 78 96 H Respiratory 16 18 19 Rate Blood Pressure 132/77 126/78 117/73 O2 Sat by Pulse 100 Oximetry 10/05/16 10/05/16 10/05/16 06:03 07:00 07:48 Temperature 97.7 F Pulse Rate 76 81 Respiratory 17 20 Rate Blood Pressure 117/73 123/73 O2 Sat by Pulse Oximetry 10/05/16 10/05/16 08:01 09:00 Temperature Pulse Rate 77 75 Respiratory 15 20 Rate Blood Pressure 116/62 126/72 O2 Sat by Pulse 100 Oximetry - General Appearance General appearance: appears stated age (chronically ill appearing elderly male) EENT: mucous membranes moist Neck: no JVD Respiratory: Present: Rales (bilateral basilar crackles anteriorly clear) Cardiology: regular Gastrointestinal: other ( and dull findings) Neurologic: other ( encephalopathic but better) - Lab 10/01/16 20:45 10/04/16 08:40 Most recent lab results Calcium 7.2 mg/dL (8.4-10.2) L 10/04/16 08:40
[2016-10-05] MEDS: BUMEX PO SCH (09:55)
[2016-10-05] MEDS: IMDUR PO SCH (09:55)
[2016-10-05] MEDS: VITAMIN C PO SCH (09:55)
[2016-10-05] MEDS: ZINC SULFATE PO SCH (09:56)
[2016-10-05] MEDS: TIMOPTIC OU SCH ×2 (09:57→23:55)
[2016-10-05] MEDS: ELIQUIS PO SCH ×2 (09:57→23:55)
[2016-10-05] MEDS: BABY ASPIRIN PO SCH (09:57)
--- NOTE | 2016-10-05 10:14 | Progress Note ---
Addendum entered and electronically signed by DAMION SUE MD 10/05/16 15:20 : Medical therapy for nonischemic cardiomyopathy and chronic atrial fibrillation. After his recent bradycardia, we will be judicious in future use of AV blake blocking agents. Original Note: Assessment and Plan Abdominal pain Ascities Pauses on tele likely related to hyperkalemia Normal TSH Non ischemic Cardiomyopathy EF less than 20% wearing lifevest Atrial Fibrillation, persistent on low dose eliquis Hx of MRSA bacteremia s/p extraction of his pacemaker and leads s/t infected pocket Left atrial appendage by BHAVANA 05/2016 Non obstructive CAD by [facility] 2013 Prior CVA Chronic renal failure PVD Continue medical therapy for nonischemic cardiomyopathy and atrial fibrillation. Subjective Date of service: 10/05/16 Principal diagnosis: Diarrhea Interval history: Patient alert and oriented. He denies chest pain and shortness of breath. Currently wrist restraints inplace; pt asks to remove them. Objective Vital Signs Temp Pulse Pulse Resp Resp BP Pulse Ox 10/05/16 09:55 74 126/89 10/05/16 09:00 75 20 126/72 100 10/05/16 08:01 77 15 116/62 10/05/16 07:48 97.7 F 10/05/16 07:00 81 20 123/73 10/05/16 06:03 76 17 117/73 10/05/16 06:01 96 H 19 117/73 10/05/16 05:00 78 18 126/78 10/05/16 04:01 78 16 132/77 100 10/05/16 03:55 98.3 F 10/05/16 03:01 75 12 122/76 97 10/05/16 02:00 95 H 14 122/69 100 10/05/16 01:39 85 15 122/74 100 10/05/16 01:29 94 H 11 L 127/73 100 10/05/16 01:01 76 16 131/68 99 10/05/16 00:00 98.2 F 77 15 107/77 98 10/04/16 23:01 74 13 117/63 100 10/04/16 22:00 99 H 16 124/68 100 10/04/16 21:35 91 H 20 121/77 100 10/04/16 21:00 73 13 132/72 97 10/04/16 20:00 98.2 F 71 13 98/62 100 10/04/16 19:11 88 20 115/58 99 10/04/16 19:01 73 15 115/58 100 10/04/16 18:00 80 13 113/59 99 10/04/16 17:06 63 13 114/52 100 10/04/16 17:00 79 14 122/63 99 10/04/16 16:19 78 13 116/66 100 10/04/16 16:00 98 F 78 13 101/56 100 10/04/16 15:12 76 18 10/04/16 15:01 72 12 131/50 100 10/04/16 14:59 73 18 10/04/16 14:00 79 18 121/68 100 10/04/16 13:48 76 131/77 10/04/16 13:46 78 17 121/68 97 10/04/16 13:24 74 12 127/63 100 10/04/16 13:00 74 12 123/82 95 10/04/16 12:02 68 12 133/74 10/04/16 12:00 98 F 75 15 123/67 100 10/04/16 11:00 69 11 L 136/73 - Physical Examination General: No Apparent Distress HEENT: Positive: PERRL Neck: Positive: trachea midline Cardiac: Positive: irregularly irregular Lungs: Positive: Decreased Breath Sounds Neuro: Positive: Grossly Intact Abdomen: Positive: Distended
--- NOTE | 2016-10-05 11:35 | Progress Note ---
Assessment and Plan - Patient Problems (1) Acute on chronic systolic (congestive) heart failure Current Visit: No Status: Acute Plan to address problem: CArdiology consulted: Continue current care, [facility] protocol: Sodium restriction, daily weight, UOP q shift, diuresis, (2) Acute renal failure Current Visit: Yes Status: Acute Qualifiers: Acute renal failure type: unspecified Qualified Code(s): N17.9 - Acute kidney failure, unspecified Plan to address problem: Nephrology consulted: worsening renal function, dialysis as per nephrology, Pt transferred to ICU. Pending Vas cath placement, and dialysis. The high probability of a clinically significant, sudden or life threatening deterioration of the [cardiac, renal, pulmonary] system(s) required my full and direct attention, intervention and personal management. The aggregate critical care time was [55] minutes. This time is in addition to time spent performing reported procedures but includes the following: [x] Data Review and interpretation [x] Patient assessment and monitoring of vital signs [x] Documentation [x] Medication orders and management (3) Chronic atrial fibrillation Current Visit: No Status: Acute Plan to address problem: Rate controlled, continue current therpay. (4) Debility Current Visit: No Status: Acute Plan to address problem: Bed alarm, fall precautions. (5) Hypertension Current Visit: No Status: Chronic (6) Nephrotic syndrome Current Visit: No Status: Chronic Plan to address problem: Nephrology consulted, dialysis as per renal team, monitor uop q shift, (7) Encephalopathy Current Visit: Yes Status: Acute Plan to address problem: Metabolic in nature. treat renal failure, and heart failure. (8) DVT prophylaxis Current Visit: No Status: Acute History Interval history: Pt lying in bed, Pt stupurous, with deterioration since admission, No reported nursing events, Hospitalist Physical - Constitutional Vitals: Temp Pulse Resp BP Pulse Ox 97.7 F 94 H 13 136/80 100 10/05/16 07:48 10/05/16 11:01 10/05/16 11:01 10/05/16 11:01 10/05/16 11:01 General appearance: Present: no acute distress - EENT ENT: hearing intact - Neck Neck: Present: supple - Respiratory Respiratory: bilateral: diminished - Cardiovascular Rhythm: irregularly irregular Heart Sounds: Present: S1 & S2 - Extremities Extremities: no ischemia Extremity abnormal: edema - Abdominal General gastrointestinal: soft, non-tender, non-distended - Integumentary Integumentary: Present: clear, dry - Psychiatric Psychiatric: no intact judgment & insight, no memory intact - Neurologic Neurologic: no gait normal Results - Labs CBC & Chem 7: 10/01/16 20:45 10/04/16 08:40 Labs: Laboratory Last Values WBC 6.5 K/mm3 (4.5-11.0) 10/01/16 20:45 RBC 4.00 M/mm3 (3.65-5.03) 10/01/16 20:45 Hgb 9.2 gm/dl (11.8-15.2) L 10/01/16 20:45 Hct 30.0 % (35.5-45.6) L 10/01/16 20:45 MCV 75 fl (84-94) L 10/01/16 20:45 MCH 23 pg (28-32) L 10/01/16 20:45 MCHC 31 % (32-34) L 10/01/16 20:45 RDW 23.3 % (13.2-15.2) H 10/01/16 20:45 Plt Count 149 K/mm3 (140-440) 10/01/16 20:45 Lymph % (Auto) 11.4 % (13.4-35.0) L 10/01/16 20:45 [place] % (Auto) 4.7 % (0.0-7.3) 10/01/16 20:45 Eos % (Auto) 0.1 % (0.0-4.3) 10/01/16 20:45 Baso % (Auto) 0.5 % (0.0-1.8) 10/01/16 20:45 Lymph # 0.7 K/mm3 (1.2-5.4) L 10/01/16 20:45 [place] # 0.3 K/mm3 (0.0-0.8) 10/01/16 20:45 Eos # 0.0 K/mm3 (0.0-0.4) 10/01/16 20:45 Baso # 0.0 K/mm3 (0.0-0.1) 10/01/16 20:45 Seg Neutrophils % 83.3 % (40.0-70.0) H 10/01/16 20:45 Seg Neutrophils # 5.4 K/mm3 (1.8-7.7) 10/01/16 20:45 Sodium 139 mmol/L (137-145) 10/04/16 08:40 Potassium 4.3 mmol/L (3.6-5.0) D 10/04/16 08:40 Chloride 99.3 mmol/L (98-107) 10/04/16 08:40 Carbon Dioxide 26 mmol/L (22-30) 10/04/16 08:40 Anion Gap 18 mmol/L 10/04/16 08:40 BUN 47 mg/dL (9-20) H 10/04/16 08:40 Creatinine 1.9 mg/dL (0.8-1.5) H 10/04/16 08:40 Estimated GFR 42 ml/min 10/04/16 08:40 BUN/Creatinine Ratio 24.73 % 10/04/16 08:40 Glucose 96 mg/dL (75-100) 10/04/16 08:40 POC Glucose 99 (70-105) 10/05/16 05:32 Calcium 7.2 mg/dL (8.4-10.2) L 10/04/16 08:40 Total Bilirubin 1.5 mg/dL (0.1-1.2) H 10/01/16 20:45 Direct Bilirubin 0.9 mg/dL (0-0.2) H 10/01/16 20:45 Indirect Bilirubin 0.6 mg/dL 10/01/16 20:45 AST 16 units/L (5-40) 10/01/16 20:45 ALT 11 units/L (7-56) 10/01/16 20:45 Alkaline Phosphatase 100 units/L (35-129) 10/01/16 20:45 Total Protein 6.2 g/dL (6.3-8.2) L 10/01/16 20:45 Albumin 3.1 g/dL (3.9-5) L 10/01/16 20:45 Albumin/Globulin Ratio 1.0 % 10/01/16 20:45 TSH 2.570 mlU/mL (0.270-4.200) 10/03/16 17:00 Urine Color Holli (Yellow) 10/01/16 01:03 Urine Turbidity Cloudy (Clear) 10/01/16 01:03 Urine pH 5.0 (5.0-7.0) 10/01/16 01:03 Ur Specific [place] 1.014 (1.003-1.030) 10/01/16 01:03 Urine Protein 100 mg/dl mg/dL (Negative) 10/01/16 01:03 Urine Glucose (UA) Neg mg/dL (Negative) 10/01/16 01:03 Urine Ketones Neg mg/dL (Negative) 10/01/16 01:03 Urine Blood Mod (Negative) 10/01/16 01:03 Urine Nitrite Neg (Negative) 10/01/16 01:03 Urine Bilirubin Neg (Negative) 10/01/16 01:03 Urine Urobilinogen 2.0 mg/dL (<2.0) 10/01/16 01:03 Ur Leukocyte Esterase Mod (Negative) 10/01/16 01:03 Urine WBC (Auto) 8.0 /HPF (0.0-6.0) H 10/01/16 01:03 Urine RBC (Auto) 5.0 /HPF (0.0-6.0) 10/01/16 01:03 U Epithel Cells (Auto) 1.0 /HPF (0-13.0) 10/01/16 01:03 Urine Bacteria (Auto) 2+ /HPF (Negative) 10/01/16 01:03 Hyaline Casts 8 /LPF 10/01/16 01:03 Urine Mucus Few /HPF 10/01/16 01:03 Hepatitis A IgM Ab -1 (NonReactive) 10/03/16 20:29 Hep Bs Antigen Non-reactive (Negative) 10/03/16 20:29 Hep B Core IgM Ab Non-reactive (NonReactive) 10/03/16 20:29 Hepatitis C Antibody Non-reactive (NonReactive) 10/03/16 20:29
--- NOTE | 2016-10-05 18:07 | XRay Report ---
FINAL REPORT EXAM: XR CHEST 1V AP HISTORY: catheter position TECHNIQUE: Chest single AP view PRIORS: Correlated with the prior exam of October 03, 2016 FINDINGS: Multiple monitoring devices overlie the chest. There is a right IJ catheter catheter tip at the cavoatrial junction. There is a right-sided PICC line. Tip is obscured however likely within the SVC. Overall no interval changes appreciated within the limits of the exam. Pneumothorax identified. Cardiac silhouette appears prominent size. IMPRESSION: Right IJ catheter and PICC line appear in satisfactory position Cardiac enlargement
[2016-10-05] MEDS: ROBITUSSIN AC PO PRN (21:52)
[2016-10-05] MEDS: MYCOSTATIN TP SCH (23:51)
[2016-10-05] MEDS: ZETIA PO SCH (23:55)
[2016-10-05] MEDS: XALATAN 0.005% OU SCH (23:55)
[2016-10-06] MEDS: BUMEX PO SCH ×3 (01:10→22:26)
[2016-10-06] MEDS: DUONEB 0.5 MG-3 MG/3 ML SOLN IH SCH ×4 (01:34→20:44)
[2016-10-06] MEDS: SYNTHROID PO SCH (05:23)
[2016-10-06 05:56] LABS: BUN/Creatinine Ratio 24.37; Calcium 6.9 mg/dL (8.4-10.2); Chloride 100.7 mmol/L (98-107); Potassium 3.8 mmol/L (3.6-5.0)
--- NOTE | 2016-10-06 10:46 | Progress Note ---
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 Subjective Date of service: 10/06/16 Principal diagnosis: Diarrhea Interval history: Patient denies chest pain and shortness of breath. Objective Vital Signs Temp Pulse Pulse Pulse Pulse Resp Resp 10/06/16 07:56 97.9 F 98 H 20 10/06/16 07:49 100 H 16 10/06/16 07:41 64 16 10/06/16 07:38 10/06/16 05:10 97.9 F 97 H 18 10/06/16 01:35 75 18 10/06/16 00:54 97.8 F 97 H 18 10/05/16 20:27 98.8 F 80 18 10/05/16 20:10 75 14 10/05/16 20:00 75 14 10/05/16 18:01 91 H 17 10/05/16 17:00 86 15 10/05/16 16:01 97 H 18 10/05/16 15:48 97.7 F 10/05/16 15:01 101 H 24 10/05/16 14:00 98 H 14 10/05/16 13:01 74 16 10/05/16 12:00 97.5 F L 84 19 10/05/16 11:27 68 13 10/05/16 11:01 94 H 13 BP BP Pulse Ox 10/06/16 07:56 139/95 100 10/06/16 07:49 10/06/16 07:41 10/06/16 07:38 100 10/06/16 05:10 132/87 94 10/06/16 01:35 10/06/16 00:54 134/83 97 10/05/16 20:27 120/78 96 10/05/16 20:10 10/05/16 20:00 10/05/16 18:01 125/83 98 10/05/16 17:00 117/74 99 10/05/16 16:01 120/66 98 10/05/16 15:48 10/05/16 15:01 88/63 95 10/05/16 14:00 108/78 91 10/05/16 13:01 116/75 96 10/05/16 12:00 134/77 100 10/05/16 11:27 132/83 100 10/05/16 11:01 136/80 100 - Physical Examination General: No Apparent Distress HEENT: Positive: PERRL Neck: Positive: trachea midline Cardiac: Positive: irregularly irregular Lungs: Positive: Decreased Breath Sounds Neuro: Positive: Grossly Intact - Labs and Meds Comprehensive Metabolic Panel 10/06/16 Range/Units 05:20 Sodium 140 (137-145) mmol/L Potassium 3.8 (3.6-5.0) mmol/L Chloride 100.7 (98-107) mmol/L Carbon Dioxide 27 (22-30) mmol/L BUN 39 H (9-20) mg/dL Creatinine 1.6 H (0.8-1.5) mg/dL Glucose 77 (75-100) mg/dL Calcium 6.9 L (8.4-10.2) mg/dL
[2016-10-06] MEDS: MYCOSTATIN TP SCH ×3 (11:10→22:27)
[2016-10-06] MEDS: TIMOPTIC OU SCH ×2 (11:14→22:27)
[2016-10-06] MEDS: IMDUR PO SCH (11:15)
[2016-10-06] MEDS: ZINC SULFATE PO SCH (11:15)
[2016-10-06] MEDS: ELIQUIS PO SCH ×2 (11:15→22:26)
[2016-10-06] MEDS: BABY ASPIRIN PO SCH (11:17)
[2016-10-06] MEDS: VITAMIN C PO SCH (11:18)
--- NOTE | 2016-10-06 11:29 | Progress Note ---
Assessment and Plan acute renal failure currently improving renal function Patient required renal replacement therapy only one time due to refractory hyperkalemia currently does have a Dugan catheter and is nonoliguric doing better and improving renal function history of underlying cardiomyopathy severe congestive heart failure abdominal distention appears to be better,he appears to have anasarca-like picture May need to check postvoid residual volume.if Dugan catheter is removed Was admitted to ICU temporarily Patient does have history of underlying membranous as well as diabetic nephropathy and has been followed up in our clinic He has history of poor long-standing noncompliance Encephalopathy appears to be improving vas-Cath can be removed tomorrow if he is otherwise stable Overall better today Subjective Principal diagnosis: Diarrhea Interval history: seen today for follow-up doing better encephalopathy is improving Events of 24 hours vitals labs intake output medication was reviewed Patient did receive one hemodialysis treatment due to worsening renal function as well as hyperkalemia Does have history of underlying diabetic and membranous nephropathy creatinine was 1 in the office recently Admitted with volume depletion diarrhea-like symptoms Objective - Vital Signs Vital signs: Vital Signs - 12hr 10/06/16 10/06/16 10/06/16 00:54 01:35 05:10 Temperature 97.8 F 97.9 F Pulse Rate [ 75 Anterior Bilateral Throughout] Pulse Rate [ 97 H Left] Pulse Rate [ 97 H Right Radial] Respiratory 18 18 Rate Respiratory 18 Rate [Anterior Bilateral Throughout] Blood Pressure 134/83 132/87 [Left Arm] O2 Sat by Pulse 97 94 Oximetry 10/06/16 10/06/16 10/06/16 07:38 07:41 07:49 Temperature Pulse Rate [ 64 100 H Anterior Bilateral Throughout] Pulse Rate [ Left] Pulse Rate [ Right Radial] Respiratory Rate Respiratory 16 16 Rate [Anterior Bilateral Throughout] Blood Pressure [Left Arm] O2 Sat by Pulse 100 Oximetry 10/06/16 07:56 Temperature 97.9 F Pulse Rate [ Anterior Bilateral Throughout] Pulse Rate [ 98 H Left] Pulse Rate [ Right Radial] Respiratory 20 Rate Respiratory Rate [Anterior Bilateral Throughout] Blood Pressure 139/95 [Left Arm] O2 Sat by Pulse 100 Oximetry - General Appearance General appearance: appears stated age EENT: mucous membranes moist Neck: no JVD Respiratory: Present: Clear to Ascultation Cardiology: regular (S1-S2 normal) Gastrointestinal: normal (abdomen is slightly distended Dulcolax) - Lab 10/01/16 20:45 01/20/17 05:20 Most recent lab results Calcium 6.9 mg/dL (8.4-10.2) L 10/06/16 05:20
[2016-10-06] MEDS ORDERED: PNEUMOVAX 23 IM ONE (12:00)
--- NOTE | 2016-10-06 12:47 | Progress Note ---
Assessment and Plan - Patient Problems (1) Acute on chronic systolic (congestive) heart failure Current Visit: No Status: Acute Plan to address problem: CArdiology consulted: Continue current care, [facility] protocol: Sodium restriction, daily weight, UOP q shift, diuresis, (2) Acute renal failure Current Visit: Yes Status: Acute Qualifiers: Acute renal failure type: unspecified Qualified Code(s): N17.9 - Acute kidney failure, unspecified Plan to address problem: Nephrology consulted: worsening renal function, dialysis as per nephrology, Pt transferred to ICU. Pending Vas cath placement, and dialysis. The high probability of a clinically significant, sudden or life threatening deterioration of the [cardiac, renal, pulmonary] system(s) required my full and direct attention, intervention and personal management. The aggregate critical care time was [55] minutes. This time is in addition to time spent performing reported procedures but includes the following: [x] Data Review and interpretation [x] Patient assessment and monitoring of vital signs [x] Documentation [x] Medication orders and management (3) Chronic atrial fibrillation Current Visit: No Status: Acute Plan to address problem: Rate controlled, continue current therpay. (4) Debility Current Visit: No Status: Acute Plan to address problem: Bed alarm, fall precautions. (5) Hypertension Current Visit: No Status: Chronic (6) Nephrotic syndrome Current Visit: No Status: Chronic Plan to address problem: Nephrology consulted, dialysis as per renal team, monitor uop q shift, (7) Encephalopathy Current Visit: Yes Status: Acute Plan to address problem: Metabolic in nature. treat renal failure, and heart failure. (8) DVT prophylaxis Current Visit: No Status: Acute History Interval history: Pt lying in bed, Pt stupurous, with deterioration since admission, No reported nursing events, Pt stable overnight. Hospitalist Physical - Constitutional Vitals: Temp Pulse Resp BP Pulse Ox 97.9 F 98 H 20 139/95 100 10/06/16 07:56 10/06/16 07:56 10/06/16 07:56 10/06/16 07:56 10/06/16 07:56 General appearance: Present: no acute distress - EENT Eyes: Present: PERRL ENT: hearing intact - Neck Neck: Present: supple - Respiratory Respiratory: bilateral: diminished - Cardiovascular Rhythm: regular Heart Sounds: Present: S1 & S2 - Extremities Extremity abnormal: edema - Abdominal General gastrointestinal: soft, non-tender, non-distended, no hepatomegaly, no splenomegaly - Integumentary Integumentary: Present: clear, dry - Psychiatric Psychiatric: no intact judgment & insight, no memory intact - Neurologic Neurologic: no CNII-XII intact Results - Labs CBC & Chem 7: 10/01/16 20:45 10/06/16 05:20 Labs: Laboratory Last Values WBC 6.5 K/mm3 (4.5-11.0) 10/01/16 20:45 RBC 4.00 M/mm3 (3.65-5.03) 10/01/16 20:45 Hgb 9.2 gm/dl (11.8-15.2) L 10/01/16 20:45 Hct 30.0 % (35.5-45.6) L 10/01/16 20:45 MCV 75 fl (84-94) L 10/01/16 20:45 MCH 23 pg (28-32) L 10/01/16 20:45 MCHC 31 % (32-34) L 10/01/16 20:45 RDW 23.3 % (13.2-15.2) H 10/01/16 20:45 Plt Count 149 K/mm3 (140-440) 10/01/16 20:45 Lymph % (Auto) 11.4 % (13.4-35.0) L 10/01/16 20:45 [place] % (Auto) 4.7 % (0.0-7.3) 10/01/16 20:45 Eos % (Auto) 0.1 % (0.0-4.3) 10/01/16 20:45 Baso % (Auto) 0.5 % (0.0-1.8) 10/01/16 20:45 Lymph # 0.7 K/mm3 (1.2-5.4) L 10/01/16 20:45 [place] # 0.3 K/mm3 (0.0-0.8) 10/01/16 20:45 Eos # 0.0 K/mm3 (0.0-0.4) 10/01/16 20:45 Baso # 0.0 K/mm3 (0.0-0.1) 10/01/16 20:45 Seg Neutrophils % 83.3 % (40.0-70.0) H 10/01/16 20:45 Seg Neutrophils # 5.4 K/mm3 (1.8-7.7) 10/01/16 20:45 Sodium 140 mmol/L (137-145) 10/06/16 05:20 Potassium 3.8 mmol/L (3.6-5.0) 10/06/16 05:20 Chloride 100.7 mmol/L (98-107) 10/06/16 05:20 Carbon Dioxide 27 mmol/L (22-30) 10/06/16 05:20 Anion Gap 16 mmol/L 10/06/16 05:20 BUN 39 mg/dL (9-20) H 10/06/16 05:20 Creatinine 1.6 mg/dL (0.8-1.5) H 10/06/16 05:20 Estimated GFR 51 ml/min 10/06/16 05:20 BUN/Creatinine Ratio 24.37 % 10/06/16 05:20 Glucose 77 mg/dL (75-100) 10/06/16 05:20 POC Glucose 144 (70-105) H 10/05/16 17:43 Calcium 6.9 mg/dL (8.4-10.2) L 10/06/16 05:20 Total Bilirubin 1.5 mg/dL (0.1-1.2) H 10/01/16 20:45 Direct Bilirubin 0.9 mg/dL (0-0.2) H 10/01/16 20:45 Indirect Bilirubin 0.6 mg/dL 10/01/16 20:45 AST 16 units/L (5-40) 10/01/16 20:45 ALT 11 units/L (7-56) 10/01/16 20:45 Alkaline Phosphatase 100 units/L (35-129) 10/01/16 20:45 Total Protein 6.2 g/dL (6.3-8.2) L 10/01/16 20:45 Albumin 3.1 g/dL (3.9-5) L 10/01/16 20:45 Albumin/Globulin Ratio 1.0 % 10/01/16 20:45 TSH 2.570 mlU/mL (0.270-4.200) 10/03/16 17:00 Urine Color Holli (Yellow) 10/01/16 01:03 Urine Turbidity Cloudy (Clear) 10/01/16 01:03 Urine pH 5.0 (5.0-7.0) 10/01/16 01:03 Ur Specific [place] 1.014 (1.003-1.030) 10/01/16 01:03 Urine Protein 100 mg/dl mg/dL (Negative) 10/01/16 01:03 Urine Glucose (UA) Neg mg/dL (Negative) 10/01/16 01:03 Urine Ketones Neg mg/dL (Negative) 10/01/16 01:03 Urine Blood Mod (Negative) 10/01/16 01:03 Urine Nitrite Neg (Negative) 10/01/16 01:03 Urine Bilirubin Neg (Negative) 10/01/16 01:03 Urine Urobilinogen 2.0 mg/dL (<2.0) 10/01/16 01:03 Ur Leukocyte Esterase Mod (Negative) 10/01/16 01:03 Urine WBC (Auto) 8.0 /HPF (0.0-6.0) H 10/01/16 01:03 Urine RBC (Auto) 5.0 /HPF (0.0-6.0) 10/01/16 01:03 U Epithel Cells (Auto) 1.0 /HPF (0-13.0) 10/01/16 01:03 Urine Bacteria (Auto) 2+ /HPF (Negative) 10/01/16 01:03 Hyaline Casts 8 /LPF 10/01/16 01:03 Urine Mucus Few /HPF 10/01/16 01:03 Hepatitis A IgM Ab -1 (NonReactive) 10/03/16 20:29 Hep Bs Antigen Non-reactive (Negative) 10/03/16 20:29 Hep B Core IgM Ab Non-reactive (NonReactive) 10/03/16 20:29 Hepatitis C Antibody Non-reactive (NonReactive) 10/03/16 20:29
--- NOTE | 2016-10-06 13:03 | Progress Note ---
Assessment and Plan - Patient Problems (1) Acute on chronic systolic (congestive) heart failure Current Visit: No Status: Acute Plan to address problem: CArdiology consulted: Continue current care, [facility] protocol: Sodium restriction, daily weight, UOP q shift, diuresis, (2) Acute renal failure Current Visit: Yes Status: Acute Qualifiers: Acute renal failure type: unspecified Qualified Code(s): N17.9 - Acute kidney failure, unspecified Plan to address problem: Nephrology consulted: worsening renal function, dialysis as per nephrology, Pt transferred to ICU. Pending Vas cath placement, and dialysis. The high probability of a clinically significant, sudden or life threatening deterioration of the [cardiac, renal, pulmonary] system(s) required my full and direct attention, intervention and personal management. The aggregate critical care time was [55] minutes. This time is in addition to time spent performing reported procedures but includes the following: [x] Data Review and interpretation [x] Patient assessment and monitoring of vital signs [x] Documentation [x] Medication orders and management (3) Chronic atrial fibrillation Current Visit: No Status: Acute Plan to address problem: Rate controlled, continue current therpay. (4) Debility Current Visit: No Status: Acute Plan to address problem: Bed alarm, fall precautions. (5) Hypertension Current Visit: No Status: Chronic (6) Nephrotic syndrome Current Visit: No Status: Chronic Plan to address problem: Nephrology consulted, dialysis as per renal team, monitor uop q shift, (7) Encephalopathy Current Visit: Yes Status: Acute Plan to address problem: Metabolic in nature. treat renal failure, and heart failure. (8) DVT prophylaxis Current Visit: No Status: Acute History Interval history: Pt lying in bed, Pt stupurous, with deterioration since admission, No reported nursing events, Pt stable overnight. Pt chronically ill appearing. Hospitalist Physical - Constitutional Vitals: Temp Pulse Resp BP Pulse Ox 97.9 F 98 H 20 139/95 100 10/06/16 07:56 10/06/16 07:56 10/06/16 07:56 10/06/16 07:56 10/06/16 07:56 General appearance: Present: mild distress - EENT Eyes: Present: PERRL ENT: no hearing intact - Respiratory Respiratory: bilateral: diminished - Cardiovascular Rhythm: irregularly irregular - Extremities Extremities: no ischemia Extremity abnormal: edema Peripheral Pulses: within normal limits - Abdominal General gastrointestinal: soft, non-tender, non-distended - Integumentary Integumentary: Present: clear, dry - Psychiatric Psychiatric: no intact judgment & insight, no memory intact - Neurologic Neurologic: no gait normal Results - Labs CBC & Chem 7: 10/01/16 20:45 10/06/16 05:20 Labs: Laboratory Last Values WBC 6.5 K/mm3 (4.5-11.0) 10/01/16 20:45 RBC 4.00 M/mm3 (3.65-5.03) 10/01/16 20:45 Hgb 9.2 gm/dl (11.8-15.2) L 10/01/16 20:45 Hct 30.0 % (35.5-45.6) L 10/01/16 20:45 MCV 75 fl (84-94) L 10/01/16 20:45 MCH 23 pg (28-32) L 10/01/16 20:45 MCHC 31 % (32-34) L 10/01/16 20:45 RDW 23.3 % (13.2-15.2) H 10/01/16 20:45 Plt Count 149 K/mm3 (140-440) 10/01/16 20:45 Lymph % (Auto) 11.4 % (13.4-35.0) L 10/01/16 20:45 [place] % (Auto) 4.7 % (0.0-7.3) 10/01/16 20:45 Eos % (Auto) 0.1 % (0.0-4.3) 10/01/16 20:45 Baso % (Auto) 0.5 % (0.0-1.8) 10/01/16 20:45 Lymph # 0.7 K/mm3 (1.2-5.4) L 10/01/16 20:45 [place] # 0.3 K/mm3 (0.0-0.8) 10/01/16 20:45 Eos # 0.0 K/mm3 (0.0-0.4) 10/01/16 20:45 Baso # 0.0 K/mm3 (0.0-0.1) 10/01/16 20:45 Seg Neutrophils % 83.3 % (40.0-70.0) H 10/01/16 20:45 Seg Neutrophils # 5.4 K/mm3 (1.8-7.7) 10/01/16 20:45 Sodium 140 mmol/L (137-145) 10/06/16 05:20 Potassium 3.8 mmol/L (3.6-5.0) 10/06/16 05:20 Chloride 100.7 mmol/L (98-107) 10/06/16 05:20 Carbon Dioxide 27 mmol/L (22-30) 10/06/16 05:20 Anion Gap 16 mmol/L 10/06/16 05:20 BUN 39 mg/dL (9-20) H 10/06/16 05:20 Creatinine 1.6 mg/dL (0.8-1.5) H 10/06/16 05:20 Estimated GFR 51 ml/min 10/06/16 05:20 BUN/Creatinine Ratio 24.37 % 10/06/16 05:20 Glucose 77 mg/dL (75-100) 10/06/16 05:20 POC Glucose 144 (70-105) H 10/05/16 17:43 Calcium 6.9 mg/dL (8.4-10.2) L 10/06/16 05:20 Total Bilirubin 1.5 mg/dL (0.1-1.2) H 10/01/16 20:45 Direct Bilirubin 0.9 mg/dL (0-0.2) H 10/01/16 20:45 Indirect Bilirubin 0.6 mg/dL 10/01/16 20:45 AST 16 units/L (5-40) 10/01/16 20:45 ALT 11 units/L (7-56) 10/01/16 20:45 Alkaline Phosphatase 100 units/L (35-129) 10/01/16 20:45 Total Protein 6.2 g/dL (6.3-8.2) L 10/01/16 20:45 Albumin 3.1 g/dL (3.9-5) L 10/01/16 20:45 Albumin/Globulin Ratio 1.0 % 10/01/16 20:45 TSH 2.570 mlU/mL (0.270-4.200) 10/03/16 17:00 Urine Color Holli (Yellow) 10/01/16 01:03 Urine Turbidity Cloudy (Clear) 10/01/16 01:03 Urine pH 5.0 (5.0-7.0) 10/01/16 01:03 Ur Specific [place] 1.014 (1.003-1.030) 10/01/16 01:03 Urine Protein 100 mg/dl mg/dL (Negative) 10/01/16 01:03 Urine Glucose (UA) Neg mg/dL (Negative) 10/01/16 01:03 Urine Ketones Neg mg/dL (Negative) 10/01/16 01:03 Urine Blood Mod (Negative) 10/01/16 01:03 Urine Nitrite Neg (Negative) 10/01/16 01:03 Urine Bilirubin Neg (Negative) 10/01/16 01:03 Urine Urobilinogen 2.0 mg/dL (<2.0) 10/01/16 01:03 Ur Leukocyte Esterase Mod (Negative) 10/01/16 01:03 Urine WBC (Auto) 8.0 /HPF (0.0-6.0) H 10/01/16 01:03 Urine RBC (Auto) 5.0 /HPF (0.0-6.0) 10/01/16 01:03 U Epithel Cells (Auto) 1.0 /HPF (0-13.0) 10/01/16 01:03 Urine Bacteria (Auto) 2+ /HPF (Negative) 10/01/16 01:03 Hyaline Casts 8 /LPF 10/01/16 01:03 Urine Mucus Few /HPF 10/01/16 01:03 Hepatitis A IgM Ab -1 (NonReactive) 10/03/16 20:29 Hep Bs Antigen Non-reactive (Negative) 10/03/16 20:29 Hep B Core IgM Ab Non-reactive (NonReactive) 10/03/16 20:29 Hepatitis C Antibody Non-reactive (NonReactive) 10/03/16 20:29
[2016-10-06] MEDS: ZETIA PO SCH (22:26)
[2016-10-06] MEDS: XALATAN 0.005% OU SCH (22:26)
[2016-10-07] MEDS: DUONEB 0.5 MG-3 MG/3 ML SOLN IH SCH ×4 (01:52→19:35)
[2016-10-07] MEDS: SYNTHROID PO SCH (06:52)
[2016-10-07] MEDS: IMDUR PO SCH (09:46)
[2016-10-07] MEDS: BABY ASPIRIN PO SCH (09:47)
[2016-10-07] MEDS: VITAMIN C PO SCH (09:47)
[2016-10-07] MEDS: ELIQUIS PO SCH ×2 (09:47→22:48)
[2016-10-07] MEDS: BUMEX PO SCH ×2 (09:48→22:48)
[2016-10-07] MEDS: TIMOPTIC OU SCH ×2 (09:49→22:49)
[2016-10-07] MEDS: MYCOSTATIN TP SCH (11:05)
[2016-10-07] MEDS: ZINC SULFATE PO SCH (11:05)
--- NOTE | 2016-10-07 13:26 | Progress Note ---
Assessment and Plan - Patient Problems (1) Acute on chronic systolic (congestive) heart failure Current Visit: No Status: Acute Plan to address problem: Medical therapy for systolic heart failure. Subjective Date of service: 10/07/16 Principal diagnosis: Diarrhea Interval history: Patient is comfortable, no acute distress. He does appear to have periods of mild confusion. Objective Vital Signs Temp Pulse Pulse Pulse Pulse Resp Resp 10/07/16 12:42 86 10/07/16 10:00 10/07/16 09:46 101 H 10/07/16 08:05 102 H 18 10/07/16 07:50 101 H 18 10/07/16 07:22 97.7 F 101 H 20 10/07/16 05:00 97.5 F L 108 H 18 10/07/16 01:00 97.6 F 84 19 10/06/16 20:47 84 18 10/06/16 20:46 10/06/16 20:00 97.8 F 103 H 19 10/06/16 17:28 98.2 F 54 L 18 10/06/16 14:05 90 18 10/06/16 13:50 88 18 10/06/16 13:32 98.0 F 101 H 20 BP BP Pulse Ox 10/07/16 12:42 10/07/16 10:00 96 10/07/16 09:46 141/93 10/07/16 08:05 10/07/16 07:50 10/07/16 07:22 141/93 96 10/07/16 05:00 141/81 92 10/07/16 01:00 128/83 99 10/06/16 20:47 10/06/16 20:46 100 10/06/16 20:00 131/92 98 10/06/16 17:28 117/64 95 10/06/16 14:05 10/06/16 13:50 10/06/16 13:32 117/80 97 - Physical Examination General: No Apparent Distress HEENT: Positive: PERRL Neck: Positive: trachea midline Cardiac: Positive: Reg Rate and Rhythm Lungs: Positive: Decreased Breath Sounds Neuro: Positive: Grossly Intact Abdomen: Positive: Soft, Distended Skin: Positive: Clear Extremities: Absent: edema
--- NOTE | 2016-10-07 16:32 | Progress Note ---
Assessment and Plan Inmpression: * Nonoliguric acute kidney injury on chronic kidney disease * Hx of membranous glomerulonephritis * Hyperkalemia * Nonischemic cardiomyopathy - TTE w/ EF less than 20% * Atrial Fibrillation Plan: * No further indication for dialysis - renal function is stable * Will d/c vascath * Optimization of cardiac function per cardiology * Monitor SCr and volume status * Dose medications for renal function * Avoid nephrotoxic agents Subjective Date of service: 10/07/16 Principal diagnosis: Diarrhea Interval history: Patient has no complaints today Objective - Vital Signs Vital signs: Vital Signs - 12hr 10/07/16 10/07/16 10/07/16 05:00 07:22 07:50 Temperature 97.5 F L 97.7 F Pulse Rate Pulse Rate [ 101 H Anterior Bilateral Throughout] Pulse Rate [ 108 H 101 H Left Radial] Pulse Rate [ Left] Respiratory 18 20 Rate Respiratory 18 Rate [Anterior Bilateral Throughout] Blood Pressure Blood Pressure 141/81 141/93 [Left Arm] O2 Sat by Pulse 92 96 Oximetry 10/07/16 10/07/16 10/07/16 08:05 09:46 10:00 Temperature Pulse Rate 101 H Pulse Rate [ 102 H Anterior Bilateral Throughout] Pulse Rate [ Left Radial] Pulse Rate [ Left] Respiratory Rate Respiratory 18 Rate [Anterior Bilateral Throughout] Blood Pressure 141/93 Blood Pressure [Left Arm] O2 Sat by Pulse 96 Oximetry 10/07/16 10/07/16 12:42 13:43 Temperature 97.8 F Pulse Rate 86 Pulse Rate [ Anterior Bilateral Throughout] Pulse Rate [ 98 H Left Radial] Pulse Rate [ 98 H Left] Respiratory 20 Rate Respiratory Rate [Anterior Bilateral Throughout] Blood Pressure Blood Pressure 143/88 [Left Arm] O2 Sat by Pulse 96 Oximetry - General Appearance General appearance: well-developed, frail EENT: ATNC Respiratory: Present: Decreased Breath Sounds Cardiology: regular, S1S2 Gastrointestinal: normal, no tenderness, no distended Integumentary: no rash Musculoskeletal: other (+edema) Psychiatric: mood/affect appropriate, cooperative - Lab 10/01/16 20:45 10/06/16 05:20 Most recent lab results Calcium 6.9 mg/dL (8.4-10.2) L 10/06/16 05:20
[2016-10-07] MEDS ORDERED: TYLENOL PO PRN (18:35)
[2016-10-07] MEDS: ZETIA PO SCH (22:48)
[2016-10-07] MEDS: XALATAN 0.005% OU SCH (22:49)
[2016-10-08] MEDS: DUONEB 0.5 MG-3 MG/3 ML SOLN IH SCH ×4 (01:43→22:36)
[2016-10-08] MEDS: SYNTHROID PO SCH (06:35)
[2016-10-08] MEDS: ROBITUSSIN AC PO PRN (06:41)
--- NOTE | 2016-10-08 07:59 | Progress Note ---
Assessment and Plan - Patient Problems (1) Acute on chronic systolic (congestive) heart failure Current Visit: No Status: Acute Plan to address problem: CArdiology consulted: Continue current care, [facility] protocol: Sodium restriction, daily weight, UOP q shift, diuresis, (2) Acute renal failure Current Visit: Yes Status: Acute Qualifiers: Acute renal failure type: unspecified Qualified Code(s): N17.9 - Acute kidney failure, unspecified Plan to address problem: Nephrology consulted: worsening renal function, dialysis as per nephrology, Pt transferred to ICU. Pending Vas cath placement, and dialysis. The high probability of a clinically significant, sudden or life threatening deterioration of the [cardiac, renal, pulmonary] system(s) required my full and direct attention, intervention and personal management. The aggregate critical care time was [55] minutes. This time is in addition to time spent performing reported procedures but includes the following: [x] Data Review and interpretation [x] Patient assessment and monitoring of vital signs [x] Documentation [x] Medication orders and management (3) Chronic atrial fibrillation Current Visit: No Status: Acute Plan to address problem: Rate controlled, continue current therpay. (4) Debility Current Visit: No Status: Acute Plan to address problem: Bed alarm, fall precautions. (5) Hypertension Current Visit: No Status: Chronic (6) Nephrotic syndrome Current Visit: No Status: Chronic Plan to address problem: Nephrology consulted, dialysis as per renal team, monitor uop q shift, (7) Encephalopathy Current Visit: Yes Status: Acute Plan to address problem: Metabolic in nature. treat renal failure, and heart failure. (8) DVT prophylaxis Current Visit: No Status: Acute History Interval history: Pt lying in bed, Pt more alert today, No reported nursing events, Pt stable overnight. Pt chronically ill appearing. Pt denies pain, NVD. D/C planning in AM. Hospitalist Physical - Constitutional Vitals: Temp Pulse Resp BP Pulse Ox 98.6 F 74 18 110/77 98 10/08/16 05:18 10/08/16 07:51 10/08/16 07:51 10/08/16 05:18 10/08/16 05:18 General appearance: Present: mild distress - EENT Eyes: Present: PERRL ENT: hearing intact - Neck Neck: Present: supple - Respiratory Respiratory: bilateral: diminished - Cardiovascular Rhythm: regular Heart Sounds: Present: S1 & S2 Peripheral Pulses: within normal limits - Abdominal General gastrointestinal: soft, non-tender, non-distended - Integumentary Integumentary: Present: clear, dry - Psychiatric Psychiatric: appropriate mood/affect, cooperative - Neurologic Neurologic: CNII-XII intact Results - Labs CBC & Chem 7: 10/01/16 20:45 10/06/16 05:20 Labs: Laboratory Last Values WBC 6.5 K/mm3 (4.5-11.0) 10/01/16 20:45 RBC 4.00 M/mm3 (3.65-5.03) 10/01/16 20:45 Hgb 9.2 gm/dl (11.8-15.2) L 10/01/16 20:45 Hct 30.0 % (35.5-45.6) L 10/01/16 20:45 MCV 75 fl (84-94) L 10/01/16 20:45 MCH 23 pg (28-32) L 10/01/16 20:45 MCHC 31 % (32-34) L 10/01/16 20:45 RDW 23.3 % (13.2-15.2) H 10/01/16 20:45 Plt Count 149 K/mm3 (140-440) 10/01/16 20:45 Lymph % (Auto) 11.4 % (13.4-35.0) L 10/01/16 20:45 Sharkey % (Auto) 4.7 % (0.0-7.3) 10/01/16 20:45 Eos % (Auto) 0.1 % (0.0-4.3) 10/01/16 20:45 Baso % (Auto) 0.5 % (0.0-1.8) 10/01/16 20:45 Lymph # 0.7 K/mm3 (1.2-5.4) L 10/01/16 20:45 Sharkey # 0.3 K/mm3 (0.0-0.8) 10/01/16 20:45 Eos # 0.0 K/mm3 (0.0-0.4) 10/01/16 20:45 Baso # 0.0 K/mm3 (0.0-0.1) 10/01/16 20:45 Seg Neutrophils % 83.3 % (40.0-70.0) H 10/01/16 20:45 Seg Neutrophils # 5.4 K/mm3 (1.8-7.7) 10/01/16 20:45 Sodium 140 mmol/L (137-145) 10/06/16 05:20 Potassium 3.8 mmol/L (3.6-5.0) 10/06/16 05:20 Chloride 100.7 mmol/L (98-107) 10/06/16 05:20 Carbon Dioxide 27 mmol/L (22-30) 10/06/16 05:20 Anion Gap 16 mmol/L 10/06/16 05:20 BUN 39 mg/dL (9-20) H 10/06/16 05:20 Creatinine 1.6 mg/dL (0.8-1.5) H 10/06/16 05:20 Estimated GFR 51 ml/min 10/06/16 05:20 BUN/Creatinine Ratio 24.37 % 10/06/16 05:20 Glucose 77 mg/dL (75-100) 10/06/16 05:20 POC Glucose 128 (70-105) H 10/08/16 01:15 Calcium 6.9 mg/dL (8.4-10.2) L 10/06/16 05:20 Total Bilirubin 1.5 mg/dL (0.1-1.2) H 10/01/16 20:45 Direct Bilirubin 0.9 mg/dL (0-0.2) H 10/01/16 20:45 Indirect Bilirubin 0.6 mg/dL 10/01/16 20:45 AST 16 units/L (5-40) 10/01/16 20:45 ALT 11 units/L (7-56) 10/01/16 20:45 Alkaline Phosphatase 100 units/L (35-129) 10/01/16 20:45 Total Protein 6.2 g/dL (6.3-8.2) L 10/01/16 20:45 Albumin 3.1 g/dL (3.9-5) L 10/01/16 20:45 Albumin/Globulin Ratio 1.0 % 10/01/16 20:45 TSH 2.570 mlU/mL (0.270-4.200) 10/03/16 17:00 Urine Color Holli (Yellow) 10/01/16 01:03 Urine Turbidity Cloudy (Clear) 10/01/16 01:03 Urine pH 5.0 (5.0-7.0) 10/01/16 01:03 Ur Specific [place] 1.014 (1.003-1.030) 10/01/16 01:03 Urine Protein 100 mg/dl mg/dL (Negative) 10/01/16 01:03 Urine Glucose (UA) Neg mg/dL (Negative) 10/01/16 01:03 Urine Ketones Neg mg/dL (Negative) 10/01/16 01:03 Urine Blood Mod (Negative) 10/01/16 01:03 Urine Nitrite Neg (Negative) 10/01/16 01:03 Urine Bilirubin Neg (Negative) 10/01/16 01:03 Urine Urobilinogen 2.0 mg/dL (<2.0) 10/01/16 01:03 Ur Leukocyte Esterase Mod (Negative) 10/01/16 01:03 Urine WBC (Auto) 8.0 /HPF (0.0-6.0) H 10/01/16 01:03 Urine RBC (Auto) 5.0 /HPF (0.0-6.0) 10/01/16 01:03 U Epithel Cells (Auto) 1.0 /HPF (0-13.0) 10/01/16 01:03 Urine Bacteria (Auto) 2+ /HPF (Negative) 10/01/16 01:03 Hyaline Casts 8 /LPF 10/01/16 01:03 Urine Mucus Few /HPF 10/01/16 01:03 Hepatitis A IgM Ab -1 (NonReactive) 10/03/16 20:29 Hep Bs Antigen Non-reactive (Negative) 10/03/16 20:29 Hep B Core IgM Ab Non-reactive (NonReactive) 10/03/16 20:29 Hepatitis C Antibody Non-reactive (NonReactive) 10/03/16 20:29
[2016-10-08] MEDS: ELIQUIS PO SCH ×2 (09:51→22:19)
[2016-10-08] MEDS: TIMOPTIC OU SCH ×2 (09:52→22:20)
[2016-10-08] MEDS: BUMEX PO SCH ×2 (10:00→22:19)
[2016-10-08] MEDS: IMDUR PO SCH (10:00)
[2016-10-08] MEDS: BABY ASPIRIN PO SCH (10:00)
[2016-10-08] MEDS: ZINC SULFATE PO SCH (10:00)
[2016-10-08] MEDS: MYCOSTATIN TP SCH ×2 (10:00→22:00)
[2016-10-08] MEDS: VITAMIN C PO SCH (10:00)
--- NOTE | 2016-10-08 11:59 | Progress Note ---
Assessment and Plan Inmpression: * Nonoliguric acute kidney injury on chronic kidney disease * Hx of membranous glomerulonephritis * Hyperkalemia * Nonischemic cardiomyopathy - TTE w/ EF less than 20% * Atrial Fibrillation Plan: * Arrange VasCath removal * No further indication for dialysis - renal function is stable * Optimization of cardiac function per cardiology * Monitor SCr and volume status * Dose medications for renal function * Avoid nephrotoxic agents Subjective Date of service: 10/08/16 Principal diagnosis: Diarrhea Interval history: Patient has no complaints Objective - Vital Signs Vital signs: Vital Signs - 12hr 10/08/16 10/08/16 10/08/16 00:12 01:43 05:18 Temperature 98.2 F 98.6 F Pulse Rate [ 73 Anterior Bilateral Throughout] Pulse Rate [ 93 H Apical] Pulse Rate [ 94 H Left Radial] Respiratory 20 18 Rate Respiratory 18 Rate [Anterior Bilateral Throughout] Blood Pressure 110/68 110/77 [Left Arm] O2 Sat by Pulse 100 98 Oximetry 10/08/16 10/08/16 10/08/16 07:51 09:09 09:48 Temperature Pulse Rate [ 74 Anterior Bilateral Throughout] Pulse Rate [ Apical] Pulse Rate [ 80 Left Radial] Respiratory 18 Rate Respiratory 18 Rate [Anterior Bilateral Throughout] Blood Pressure 147/80 [Left Arm] O2 Sat by Pulse 94 97 Oximetry - General Appearance General appearance: well-developed, frail EENT: ATNC Respiratory: Present: Decreased Breath Sounds Cardiology: regular Gastrointestinal: normal, no tenderness, no distended Integumentary: no rash Musculoskeletal: other (trace edema) Psychiatric: cooperative - Lab 10/01/16 20:45 10/08/16 16:20 Most recent lab results Calcium 6.9 mg/dL (8.4-10.2) L 10/06/16 05:20
--- NOTE | 2016-10-08 13:17 | Progress Note ---
Assessment and Plan - Patient Problems (1) Acute on chronic systolic (congestive) heart failure Current Visit: No Status: Acute Plan to address problem: Medical therapy for systolic heart failure. Subjective Date of service: 10/08/16 Principal diagnosis: Diarrhea Interval history: Patient is comfortable, no acute distress. He does appear to have periods of mild confusion. Objective Vital Signs Temp Pulse Pulse Pulse Pulse Pulse Resp 10/08/16 13:14 97.9 F 63 18 10/08/16 09:48 10/08/16 09:09 80 18 10/08/16 07:51 74 10/08/16 05:18 98.6 F 93 H 18 10/08/16 01:43 73 10/08/16 00:12 98.2 F 94 H 20 10/07/16 20:31 97.8 F 101 H 18 10/07/16 19:45 92 H 10/07/16 19:37 10/07/16 19:36 95 H 10/07/16 19:35 88 10/07/16 18:30 97.9 F 91 H 20 10/07/16 14:00 104 H 10/07/16 13:50 103 H 10/07/16 13:43 97.8 F 98 H 98 H 20 Resp BP Pulse Ox 10/08/16 13:14 132/84 95 10/08/16 09:48 97 10/08/16 09:09 147/80 94 10/08/16 07:51 18 10/08/16 05:18 110/77 98 10/08/16 01:43 18 10/08/16 00:12 110/68 100 10/07/16 20:31 121/83 96 10/07/16 19:45 18 10/07/16 19:37 98 10/07/16 19:36 15 10/07/16 19:35 10/07/16 18:30 157/79 96 10/07/16 14:00 18 10/07/16 13:50 18 10/07/16 13:43 143/88 96 - Physical Examination General: No Apparent Distress HEENT: Positive: PERRL Neck: Positive: trachea midline Cardiac: Positive: Irregularly Regular Lungs: Positive: Decreased Breath Sounds Neuro: Positive: Grossly Intact Abdomen: Positive: Soft, Distended Skin: Positive: Clear Extremities: Absent: edema
[2016-10-08 16:49] LABS: Calcium 7.5 mg/dL (8.4-10.2); Chloride 95.6 mmol/L (98-107); Potassium 3.6 mmol/L (3.6-5.0)
--- NOTE | 2016-10-08 19:06 | Progress Note ---
Assessment and Plan - Patient Problems (1) Acute on chronic systolic (congestive) heart failure Current Visit: No Status: Acute Plan to address problem: CArdiology consulted: Continue current care, [facility] protocol: Sodium restriction, daily weight, UOP q shift, diuresis, (2) Acute renal failure Current Visit: Yes Status: Acute Qualifiers: Acute renal failure type: unspecified Qualified Code(s): N17.9 - Acute kidney failure, unspecified Plan to address problem: Nephrology consulted: worsening renal function, dialysis as per nephrology, Pt transferred to ICU. Pending Vas cath placement, and dialysis. The high probability of a clinically significant, sudden or life threatening deterioration of the [cardiac, renal, pulmonary] system(s) required my full and direct attention, intervention and personal management. The aggregate critical care time was [55] minutes. This time is in addition to time spent performing reported procedures but includes the following: [x] Data Review and interpretation [x] Patient assessment and monitoring of vital signs [x] Documentation [x] Medication orders and management (3) Chronic atrial fibrillation Current Visit: No Status: Acute Plan to address problem: Rate controlled, continue current therpay. (4) Debility Current Visit: No Status: Acute Plan to address problem: Bed alarm, fall precautions. (5) Hypertension Current Visit: No Status: Chronic (6) Nephrotic syndrome Current Visit: No Status: Chronic Plan to address problem: Nephrology consulted, dialysis as per renal team, monitor uop q shift, (7) Encephalopathy Current Visit: Yes Status: Resolved (8) DVT prophylaxis Current Visit: No Status: Acute History Interval history: Pt lying in bed, Pt more alert today, No reported nursing events, Pt stable overnight. Pt chronically ill appearing. Pt denies pain, NVD. D/C planning in AM. Hospitalist Physical - Constitutional Vitals: Temp Pulse Resp BP Pulse Ox 97.9 F 89 18 121/85 95 10/08/16 17:22 10/08/16 17:22 10/08/16 17:22 10/08/16 17:22 10/08/16 17:22 General appearance: Present: mild distress - EENT Eyes: Present: PERRL ENT: hearing intact - Neck Neck: Present: supple - Respiratory Respiratory: bilateral: CTA - Cardiovascular Rhythm: regular Heart Sounds: Present: S1 & S2 - Extremities Extremities: abnormal Peripheral Pulses: within normal limits - Abdominal General gastrointestinal: soft, non-tender, non-distended - Integumentary Integumentary: Present: clear, dry, decreased turgor - Psychiatric Psychiatric: appropriate mood/affect, cooperative - Neurologic Neurologic: CNII-XII intact Results - Labs CBC & Chem 7: 10/01/16 20:45 10/08/16 16:20 Labs: Laboratory Last Values WBC 6.5 K/mm3 (4.5-11.0) 10/01/16 20:45 RBC 4.00 M/mm3 (3.65-5.03) 10/01/16 20:45 Hgb 9.2 gm/dl (11.8-15.2) L 10/01/16 20:45 Hct 30.0 % (35.5-45.6) L 10/01/16 20:45 MCV 75 fl (84-94) L 10/01/16 20:45 MCH 23 pg (28-32) L 10/01/16 20:45 MCHC 31 % (32-34) L 10/01/16 20:45 RDW 23.3 % (13.2-15.2) H 10/01/16 20:45 Plt Count 149 K/mm3 (140-440) 10/01/16 20:45 Lymph % (Auto) 11.4 % (13.4-35.0) L 10/01/16 20:45 [place] % (Auto) 4.7 % (0.0-7.3) 10/01/16 20:45 Eos % (Auto) 0.1 % (0.0-4.3) 10/01/16 20:45 Baso % (Auto) 0.5 % (0.0-1.8) 10/01/16 20:45 Lymph # 0.7 K/mm3 (1.2-5.4) L 10/01/16 20:45 Reagan # 0.3 K/mm3 (0.0-0.8) 10/01/16 20:45 Eos # 0.0 K/mm3 (0.0-0.4) 10/01/16 20:45 Baso # 0.0 K/mm3 (0.0-0.1) 10/01/16 20:45 Seg Neutrophils % 83.3 % (40.0-70.0) H 10/01/16 20:45 Seg Neutrophils # 5.4 K/mm3 (1.8-7.7) 10/01/16 20:45 Sodium 135 mmol/L (137-145) L 10/08/16 16:20 Potassium 3.6 mmol/L (3.6-5.0) 10/08/16 16:20 Chloride 95.6 mmol/L (98-107) L 10/08/16 16:20 Carbon Dioxide 25 mmol/L (22-30) 10/08/16 16:20 Anion Gap 18 mmol/L 10/08/16 16:20 BUN 33 mg/dL (9-20) H 10/08/16 16:20 Creatinine 1.5 mg/dL (0.8-1.5) 10/08/16 16:20 Estimated GFR 55 ml/min 10/08/16 16:20 BUN/Creatinine Ratio 22.00 % 10/08/16 16:20 Glucose 97 mg/dL (75-100) 10/08/16 16:20 POC Glucose 128 (70-105) H 10/08/16 01:15 Calcium 7.5 mg/dL (8.4-10.2) L 10/08/16 16:20 Total Bilirubin 1.5 mg/dL (0.1-1.2) H 10/01/16 20:45 Direct Bilirubin 0.9 mg/dL (0-0.2) H 10/01/16 20:45 Indirect Bilirubin 0.6 mg/dL 10/01/16 20:45 AST 16 units/L (5-40) 10/01/16 20:45 ALT 11 units/L (7-56) 10/01/16 20:45 Alkaline Phosphatase 100 units/L (35-129) 10/01/16 20:45 Total Protein 6.2 g/dL (6.3-8.2) L 10/01/16 20:45 Albumin 3.1 g/dL (3.9-5) L 10/01/16 20:45 Albumin/Globulin Ratio 1.0 % 10/01/16 20:45 TSH 2.570 mlU/mL (0.270-4.200) 10/03/16 17:00 Urine Color Holli (Yellow) 10/01/16 01:03 Urine Turbidity Cloudy (Clear) 10/01/16 01:03 Urine pH 5.0 (5.0-7.0) 10/01/16 01:03 Ur Specific [place] 1.014 (1.003-1.030) 10/01/16 01:03 Urine Protein 100 mg/dl mg/dL (Negative) 10/01/16 01:03 Urine Glucose (UA) Neg mg/dL (Negative) 10/01/16 01:03 Urine Ketones Neg mg/dL (Negative) 10/01/16 01:03 Urine Blood Mod (Negative) 10/01/16 01:03 Urine Nitrite Neg (Negative) 10/01/16 01:03 Urine Bilirubin Neg (Negative) 10/01/16 01:03 Urine Urobilinogen 2.0 mg/dL (<2.0) 10/01/16 01:03 Ur Leukocyte Esterase Mod (Negative) 10/01/16 01:03 Urine WBC (Auto) 8.0 /HPF (0.0-6.0) H 10/01/16 01:03 Urine RBC (Auto) 5.0 /HPF (0.0-6.0) 10/01/16 01:03 U Epithel Cells (Auto) 1.0 /HPF (0-13.0) 10/01/16 01:03 Urine Bacteria (Auto) 2+ /HPF (Negative) 10/01/16 01:03 Hyaline Casts 8 /LPF 10/01/16 01:03 Urine Mucus Few /HPF 10/01/16 01:03 Hepatitis A IgM Ab -1 (NonReactive) 10/03/16 20:29 Hep Bs Antigen Non-reactive (Negative) 10/03/16 20:29 Hep B Core IgM Ab Non-reactive (NonReactive) 10/03/16 20:29 Hepatitis C Antibody Non-reactive (NonReactive) 10/03/16 20:29
[2016-10-08] MEDS: ZETIA PO SCH (22:19)
[2016-10-08] MEDS: XALATAN 0.005% OU SCH (22:23)
[2016-10-09] MEDS: DUONEB 0.5 MG-3 MG/3 ML SOLN IH SCH ×3 (02:00→13:56)
[2016-10-09] MEDS: SYNTHROID PO SCH (06:38)
[2016-10-09 07:13] LABS: BUN/Creatinine Ratio 21.25; Calcium 7.5 mg/dL (8.4-10.2); Chloride 95.6 mmol/L (98-107); Potassium 3.8 mmol/L (3.6-5.0)
--- NOTE | 2016-10-09 08:03 | Discharge Summary ---
Providers - Providers Date of Admission: 10/02/16 01:42 Attending physician: MALU GIBSON 10/02/16 01:50 Consult to Physician [CONS] Routine Consulting Provider: [facility] Reason For Exam: abdominal pain, diarrhea Place consult to:: GI Notified:: Jorden from answering service Phone number called:: [phone] Was contact made?: Yes Time called:: 07:02 10/02/16 01:58 Consult to Physician [CONS] Routine Consulting Provider: YANIRA CHARLES Reason For Exam: s/p infected pacemaker removal Place consult to:: Cardiology Notified:: Cecil from answering service Phone number called:: [phone] Was contact made?: Yes If yes, spoke with:: Cecil Time called:: 06:45 Comment:: Patient was scheduled to see Dr Charles 10/03/16 17:12 Consult to Physician [CONS] Urgent Consulting Provider: CHRISTIANO AGUIRRE Reason For Exam: VAS CATH for HD Place consult to:: rosemarie pritchard Notified:: yes 10/08/16 08:00 Physical Therapy Evaluation and Treat [CONS] Routine Comment: Reason For Exam: weakness/debility Primary care physician: [employer] Hospitalization Condition: Stable Disposition: STILL A PATIENT - Discharge Diagnoses (1) Acute on chronic systolic (congestive) heart failure Status: Acute (2) Acute renal failure Status: Acute Qualifiers: Acute renal failure type: unspecified Qualified Code(s): N17.9 - Acute kidney failure, unspecified (3) Chronic atrial fibrillation Status: Acute (4) Debility Status: Acute (5) Hypertension Status: Chronic (6) Nephrotic syndrome Status: Chronic (7) Encephalopathy Status: Resolved (8) DVT prophylaxis Status: Acute Exam - Constitutional Vitals: Temp Pulse Resp BP Pulse Ox 97.3 F L 109 H 20 138/95 98 10/09/16 06:00 10/09/16 06:00 10/09/16 06:00 10/09/16 06:00 10/09/16 06:00 Plan Follow up with: CECELIA VILLA MD [Primary Care Provider] - 3-5 Days
--- NOTE | 2016-10-09 09:17 | Progress Note ---
Assessment and Plan Inmpression: * Nonoliguric acute kidney injury on chronic kidney disease * Hx of membranous glomerulonephritis * Hyperkalemia * Nonischemic cardiomyopathy - TTE w/ EF less than 20% * Atrial Fibrillation Plan: * Vas cath removal ordered * No further indication for dialysis - renal function is stable * Optimization of cardiac function per cardiology * Monitor SCr and volume status * Dose medications for renal function * Avoid nephrotoxic agents * Note plans for d/c - stable from a renal standpoint Subjective Date of service: 10/09/16 Principal diagnosis: Diarrhea Interval history: Patient has no complaints this am. Objective - Vital Signs Vital signs: Vital Signs - 12hr 10/08/16 10/08/16 10/09/16 21:26 22:00 01:51 Temperature 97.6 F 97.4 F L Pulse Rate 95 H Pulse Rate [ Anterior Bilateral Throughout] Pulse Rate [ 113 H 77 Left Radial] Respiratory 16 20 Rate Respiratory Rate [Anterior Bilateral Throughout] Blood Pressure 118/91 114/82 [Left Arm] O2 Sat by Pulse 97 92 Oximetry 10/09/16 10/09/16 10/09/16 06:00 08:00 09:04 Temperature 97.3 F L 97.8 F Pulse Rate Pulse Rate [ 108 H Anterior Bilateral Throughout] Pulse Rate [ 109 H 69 Left Radial] Respiratory 20 18 Rate Respiratory 18 Rate [Anterior Bilateral Throughout] Blood Pressure 138/95 136/95 [Left Arm] O2 Sat by Pulse 98 92 Oximetry 10/09/16 09:13 Temperature Pulse Rate Pulse Rate [ 108 H Anterior Bilateral Throughout] Pulse Rate [ Left Radial] Respiratory Rate Respiratory 17 Rate [Anterior Bilateral Throughout] Blood Pressure [Left Arm] O2 Sat by Pulse 98 Oximetry - General Appearance General appearance: well-developed, frail EENT: ATNC Neck: other (RIJ vas cath) Respiratory: Present: Decreased Breath Sounds Cardiology: regular, S1S2 Gastrointestinal: normal, no tenderness, no distended Integumentary: no rash Musculoskeletal: other (trace edema) Psychiatric: cooperative - Lab 10/01/16 20:45 10/09/16 04:15 Most recent lab results Calcium 7.5 mg/dL (8.4-10.2) L 10/09/16 04:15
[2016-10-09] MEDS: MYCOSTATIN TP SCH (10:21)
[2016-10-09] MEDS: BUMEX PO SCH (10:22)
[2016-10-09] MEDS: ELIQUIS PO SCH (10:22)
[2016-10-09] MEDS: BABY ASPIRIN PO SCH (10:22)
[2016-10-09] MEDS: ZINC SULFATE PO SCH (10:22)
[2016-10-09] MEDS: IMDUR PO SCH (10:22)
[2016-10-09] MEDS: VITAMIN C PO SCH (10:22)
[2016-10-09] MEDS: TIMOPTIC OU SCH (10:22)
--- NOTE | 2016-10-09 10:45 | Progress Note ---
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 Stable cardiac [place]. Subjective Date of service: 10/09/16 Principal diagnosis: Diarrhea Interval history: Patient denies chest pain and shortness of breath. For planned discharge today. Objective Vital Signs Temp Pulse Pulse Pulse Pulse Resp Resp 10/09/16 09:13 108 H 17 10/09/16 09:04 97.8 F 69 18 10/09/16 08:00 108 H 18 10/09/16 06:00 97.3 F L 109 H 20 10/09/16 01:51 97.4 F L 77 20 10/08/16 22:00 95 H 10/08/16 21:26 97.6 F 113 H 16 10/08/16 17:22 97.9 F 89 18 10/08/16 15:51 76 18 10/08/16 15:17 87 10/08/16 13:14 97.9 F 63 18 BP Pulse Ox 10/09/16 09:13 98 10/09/16 09:04 136/95 92 10/09/16 08:00 10/09/16 06:00 138/95 98 10/09/16 01:51 114/82 92 10/08/16 22:00 10/08/16 21:26 118/91 97 10/08/16 17:22 121/85 95 10/08/16 15:51 10/08/16 15:17 10/08/16 13:14 132/84 95 - Physical Examination General: No Apparent Distress HEENT: Positive: PERRL Cardiac: Positive: irregularly irregular Lungs: Positive: Decreased Breath Sounds Neuro: Positive: Grossly Intact Extremities: Absent: edema - Labs and Meds Comprehensive Metabolic Panel 10/08/16 10/09/16 Range/Units 16:20 04:15 Sodium 135 L 139 (137-145) mmol/L Potassium 3.6 3.8 (3.6-5.0) mmol/L Chloride 95.6 L 95.6 L (98-107) mmol/L Carbon Dioxide 25 24 (22-30) mmol/L BUN 33 H 34 H (9-20) mg/dL Creatinine 1.5 1.6 H (0.8-1.5) mg/dL Glucose 97 61 L (75-100) mg/dL Calcium 7.5 L 7.5 L (8.4-10.2) mg/dL
[2016-10-09 13:16] VITALS: BP 123/90
== END 2016-10-09 14:52 | disposition home or self-care (01) | DRG 291 ==
LOC: ED 16:22 → 4A 10-02 01:42 → CC1 10-03 18:45 → 4A 10-05 19:04
PROVIDERS: ADMIT Internal Medicine; ATTEND Internal Medicine
PROC: 02H633Z Insertion of Infusion Device into Right Atrium, Percutaneous Approach (ICD-10-PCS; principal; 2016-10-03)
PROC: B543ZZA Ultrasonography of Right Jugular Veins, Guidance (ICD-10-PCS; 2016-10-03)
PROC: 5A1D00Z (ICD-10-PCS; 2016-10-03)
PROC: 02HV33Z Insertion of Infusion Device into Superior Vena Cava, Percutaneous Approach (ICD-10-PCS; 2016-10-05)
PROC: 3E0234Z Introduction of Serum, Toxoid and Vaccine into Muscle, Percutaneous Approach (ICD-10-PCS; 2016-10-06)
DX: I13.0 Hypertensive heart and chronic kidney disease with heart failure and stage 1 through stage 4 chronic kidney disease, or unspecified chronic kidney disease (principal); I50.43 Acute on chronic combined systolic (congestive) and diastolic (congestive) heart failure; G93.41 Metabolic encephalopathy; N17.9 Acute kidney failure, unspecified; R18.8 Other ascites; I69.354 Hemiplegia and hemiparesis following cerebral infarction affecting left non-dominant side; N04.9 Nephrotic syndrome with unspecified morphologic changes; I42.9 Cardiomyopathy, unspecified; I48.0 Paroxysmal atrial fibrillation; K21.9 Gastro-esophageal reflux disease without esophagitis; M19.90 Unspecified osteoarthritis, unspecified site; F03.90 Unspecified dementia, unspecified severity, without behavioral disturbance, psychotic disturbance, mood disturbance, and anxiety; E78.5 Hyperlipidemia, unspecified; M10.9 Gout, unspecified; I25.10 Atherosclerotic heart disease of native coronary artery without angina pectoris; E11.22 Type 2 diabetes mellitus with diabetic chronic kidney disease; N18.9 Chronic kidney disease, unspecified; E87.5 Hyperkalemia; E11.51 Type 2 diabetes mellitus with diabetic peripheral angiopathy without gangrene; R15.9 Full incontinence of feces; I48.2 Chronic atrial fibrillation; R53.81 Other malaise; Z79.01 Long term (current) use of anticoagulants; Z79.899 Other long term (current) drug therapy; Z79.82 Long term (current) use of aspirin; Z88.8 Allergy status to other drugs, medicaments and biological substances; Z86.718 Personal history of other venous thrombosis and embolism; Z98.890 Other specified postprocedural states; Z86.14 Personal history of Methicillin resistant Staphylococcus aureus infection; Z91.19 Patient's noncompliance with other medical treatment and regimen; Z23 Encounter for immunization
CPT/HCPCS: 36415; 71010; 74176; 80048; 80074; 81001; 82962; 84443; 85007; 85025; 87045; 87493; 90732; 94640; 94760; 96361; 96374; 96375; J1644; J2270; J2405; J7030

== ENCOUNTER 2016-10-21 13:52 | Emergency (ER) | payer MEDICARE, OTHER ==
--- NOTE | 2016-10-21 14:54 | Emergency Department Report ---
ED CPR HPI - General Chief Complaint: Cardiac Arrest/CPR Stated Complaint: CARDIAC ARREST Time Seen by Provider: 10/21/16 14:50 Source: EMS Mode of arrival: Stretcher Limitations: Physical Limitation, Other - History of Present Illness Initial Comments: The patient was found unresponsive by his . The down time was uncertain per paramedics. The tells me that the patient "has been sick and has a lot of problems". He has a history of multiple medical problems and has been at this facility several times in the past. He was found in asystole with no signs of life according to paramedics. He was intubated with an endotracheal tube, had at least one half hour of ACLS protocol without the return of spontaneous circulation by the time of his arrival. He had no signs of life when paramedics arrived at the residence. MD Complaint: found unresponsive -: unknown Place: home Bystander CPR Performed: No AED Applied by Bystander/Hand Mixer: No Shock Advised: No Initial Findings in the Field: systole (asystole and apneic) ROSC in the Field: No Associated Injuries: No Treatments Prior to Arrival: intubation, chest compressions, epinephrine mgs # - Related Data Home Medications Medication Instructions Recorded Confirmed Last Taken Apixaban [Eliquis] 2.5 mg PO BID 11/19/14 10/02/16 10/01/16 Carvedilol [Coreg] 12.5 mg PO BID 04/26/15 10/02/16 10/01/16 Levothyroxine [Synthroid] 0.075 mg PO QAM@0600 04/08/16 10/02/16 10/01/16 Hydroxyzine HCl [hydrOXYzine] 10 mg PO Q8H PRN 05/25/16 10/02/16 10/01/16 Ipratropium/Albuterol Sulfate 1 ampul IH Q6HR 05/25/16 10/02/16 10/01/16 [Duoneb 0.5 mg-3 mg/3 ml Soln] Zinc Sulfate 220 mg PO DAILY 05/25/16 10/02/16 10/01/16 predniSONE [Deltasone] 20 mg PO QDAY 05/25/16 10/02/16 10/01/16 Previous Rx's Medication Instructions Recorded Last Taken Type Latanoprost 0.005% [Xalatan 0.005%] 1 drops OU HS bottle 07/23/15 10/01/16 Rx Timolol 0.5% [Timoptic] 1 drops OU BID bottle 07/23/15 10/01/16 Rx Nystatin Cream [Mycostatin Cream] 1 applic TP BID #1 tube 04/26/16 10/01/16 Rx cycloSPORINE, MODIFIED [Gengraf] 100 mg PO Q12HR #60 capsule 06/15/16 10/01/16 Rx Allergies Allergy/AdvReac Type Severity Reaction Status Date / Time felodipine Allergy Itching Verified 09/14/15 13:13 gemfibrozil Allergy Nausea Verified 09/14/15 13:13 hydrochlorothiazide Allergy Itching Verified 09/14/15 13:13 niacin Allergy Unknown Verified 05/19/15 13:28 [From Niaspan Extended-Release] nifedipine Allergy Itching Verified 09/14/15 13:13 Eenwmvh-Wrv-Eep Reductase Allergy Hives Verified 09/14/15 13:13 Inhibitor tolterodine Allergy Itching Verified 09/14/15 13:22 triamterene Allergy Itching Verified 09/14/15 13:22 atorvastatin AdvReac Unknown Verified 05/19/15 13:28 lovastatin AdvReac Unknown Verified 05/19/15 13:28 simvastatin AdvReac Unknown Verified 05/19/15 13:28 ED Review of Systems ROS: Stated complaint: CARDIAC ARREST Other details as noted in HPI Comment: Unobtainable due to pts medical conditions ED Past Medical Hx - Past Medical History Hx Hypertension: Yes Hx CVA: Yes (L sided deficits) Hx Heart Attack/AMI: No Hx Congestive Heart Failure: Yes Hx Diabetes: Yes Hx Deep Vein Thrombosis: Yes Hx Pulmonary Embolism: No Hx GERD: Yes Hx Liver Disease: No Hx Renal Disease: Yes Hx Sickle Cell Disease: No Hx Arthritis: Yes Hx Asthma: No Hx COPD: No Hx Tuberculosis: No Hx Dementia: Yes Hx HIV: No Additional medical history: high cholesterol,gout, Atrial Fib, pacemaker, lifevest - Surgical History Hx Coronary Stent: No Hx Pacemaker: Yes (with subsequent removal) Hx Internal Defibrillator: No Additional Surgical History: Inguinal hernia repair, repair of left femur fx - Social History Smoking Status: Never Smoker - Medications Home Medications: Home Medications Medication Instructions Recorded Confirmed Last Taken Type Apixaban [Eliquis] 2.5 mg PO BID 11/19/14 10/02/16 10/01/16 History Carvedilol [Coreg] 12.5 mg PO BID 04/26/15 10/02/16 10/01/16 History Latanoprost 0.005% [Xalatan 0.005%] 1 drops OU HS bottle 07/23/15 10/02/16 Rx Timolol 0.5% [Timoptic] 1 drops OU BID bottle 07/23/15 10/02/16 10/01/16 Rx Levothyroxine [Synthroid] 0.075 mg PO QAM@0600 04/08/16 10/02/16 10/01/16 History Nystatin Cream [Mycostatin Cream] 1 applic TP BID #1 tube 04/26/16 10/02/16 Rx Hydroxyzine HCl [hydrOXYzine] 10 mg PO Q8H PRN 05/25/16 10/02/16 10/01/16 History Ipratropium/Albuterol Sulfate 1 ampul IH Q6HR 05/25/16 10/02/16 10/01/16 History [Duoneb 0.5 mg-3 mg/3 ml Soln] Zinc Sulfate 220 mg PO DAILY 05/25/16 10/02/16 10/01/16 History predniSONE [Deltasone] 20 mg PO QDAY 05/25/16 10/02/16 10/01/16 History cycloSPORINE, MODIFIED [Gengraf] 100 mg PO Q12HR #60 capsule 06/15/16 10/02/16 10/01/16 Rx ED Physical Exam - General Limitations: Physical Limitation, Other (no signs of life) - Head Head exam: Present: atraumatic - ENT ENT exam: Present: normal exam - Neck Neck exam: Present: normal inspection - Respiratory Respiratory exam: Present: normal lung sounds bilaterally (with Ambu bag assist) - Cardiovascular Cardiovascular Exam: Present: other (no heart sounds) - GI/Abdominal GI/Abdominal exam: Present: distended, other (possible palpable fluid wave) - Extremities Exam Extremities exam: Present: pedal edema (leg edema) - Neurological Exam Neurological exam: Present: other (GCS 3) - Skin Skin exam: Present: dry, pallor ED Course Vital Signs 10/21/16 14:24 Pulse Rate 63 - Reevaluation(s) Reevaluation #1: Medics stated that the rhythm was asystole. However the patient arrived with very low for him to itch complexes. There was no signs of life. A Doppler exam was performed. There was no signs of circulation. As such the patient had already received 30 minutes of resuscitation with an unknown down time. Further resuscitative efforts were deemed futile. The patient was pronounced. The patient's was counseled. 10/21/16 14:55 Critical care attestation.: If time is entered above; I have spent that time in minutes in the direct care of this critically ill patient, excluding procedure time. ED Disposition Clinical Impression: Cardiac arrest Disposition: Is pt being admited?: No Does the pt Need Aspirin: No Condition: Stable Referrals: PRIMARY CARE, [Primary Care Provider] - 3-5 Days Time of Disposition: 14:56
== END 2016-10-21 15:44 ==
LOC: ED 13:52
DX: I46.9 Cardiac arrest, cause unspecified (principal); I10 Essential (primary) hypertension; E11.9 Type 2 diabetes mellitus without complications; K21.9 Gastro-esophageal reflux disease without esophagitis; F03.90 Unspecified dementia, unspecified severity, without behavioral disturbance, psychotic disturbance, mood disturbance, and anxiety; Z86.73 Personal history of transient ischemic attack (TIA), and cerebral infarction without residual deficits; Z86.718 Personal history of other venous thrombosis and embolism; Z87.39 Personal history of other diseases of the musculoskeletal system and connective tissue
CPT/HCPCS: 92950